=== PATIENT | male | born 1970 | race Caucasian/White ===

== ENCOUNTER 2017-02-20 14:33 | Emergency (ER) | payer MEDICARE, OTHER ==
[~2017-02-20] VITALS: Ht 185.4 cm; Wt 70.4 kg
[~2017-02-20 14:33] MED LIST: CLON1TAB PO; ESOM20EC PO
--- NOTE | 2017-02-20 16:42 | NUR ---
Patient to bed 08.
--- NOTE | 2017-02-20 16:47 | NUR ---
Dr. Perry evaluating patient at bedside.
--- NOTE | 2017-02-20 16:50 | NUR ---
PATIENT PRESENTS TO ED WITH LINEAR ABRASIONS TO RIGHT SIDE OF NECK , TENDER TO RIGHT PARIETAL OCCIPITAL AREA . PT STATES . DENIES N/V/D; SKIN IS PINK/WARM/DRY; AAOX4 WITH EVEN AND STEADY GAIT; LUNGS CLEAR BL; HR EVEN AND REGULAR; PT DENIES ANY FEVER, CP, SOB, OR COUGH AT THIS TIME; PATIENT STATES PAIN OF 8/10 AT THIS TIME; VSS; PATIENT POSITIONED FOR COMFORT; HOB ELEVATED; BEDRAILS UP X2; BED DOWN. ER MD MADE AWARE OF PT STATUS.
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
== END 2017-02-20 17:39 | disposition home or self-care (01) ==
LOC: MED 14:33
DX: S09.8XXA Other specified injuries of head, initial encounter (principal); F41.9 Anxiety disorder, unspecified; Y04.2XXA Assault by strike against or bumped into by another person, initial encounter; Y93.89 Activity, other specified; Y92.89 Other specified places as the place of occurrence of the external cause; Y99.8 Other external cause status
CPT/HCPCS: 99283

== ENCOUNTER 2018-07-23 20:30 | Emergency (ER) | payer OTHER, MEDICAID ==
[~2018-07-23] VITALS: Ht 182.9 cm; Wt 77.1 kg
--- NOTE | 2018-07-23 20:57 | NUR ---
PT AMBULATED TO BED 10. REFUSED VITALS D/T SEVERE ANXIETY.
--- NOTE | 2018-07-23 20:57 | NUR ---
47/M CAME IN W C/O RUQ PAIN RADIATING TO RT SHOULDER AND BACK X 2 DAYS. ABD SOFT, ROUND, -TENDERNESS, BS ACTIVE X 4. DENIES FEVER/CHILLS, N/V/D. DENIES TRAUMA/INJURY. PT APPEARS HIGHLY ANXIOUS, REFUSING TO BE ON MONITOR UNTIL SEEN BY MD. PMH: ANXIETY
--- NOTE | 2018-07-23 21:22 | NUR ---
Note josedayana in EDM - 07/23/18 at 2126 by LADI Patient discharged with v/s stable. Written and verbal after care instructions given and explained. Patient alert, oriented and verbalized understanding of instructions. Ambulatory with steady gait. All questions addressed prior to discharge. ID band removed. Patient advised to follow up with PMD. Rx of PEPCID, BENADRYL, PREDNISONE given. Patient educated on indication of medication including possible reaction and side effects. Opportunity to ask questions provided and answered.
[2018-07-23] MEDS ORDERED: LORazepam 1 MG TAB PO ONE (21:30)
[2018-07-23] MEDS ORDERED: CYCLOBENZAPRINE 10 MG TAB PO ONE (21:30)
--- NOTE | 2018-07-23 22:30 | NUR ---
Patient discharged with v/s stable. Written and verbal after care instructions given and explained. Patient alert, oriented and verbalized understanding of instructions. Ambulatory with steady gait. All questions addressed prior to discharge. ID band removed. Patient advised to follow up with PMD. Rx of FLEXERIL given. Patient educated on indication of medication including possible reaction and side effects. Opportunity to ask questions provided and answered.
[2018-07-23 22:36] VITALS: BP 135/82
== END 2018-07-23 22:30 | disposition home or self-care (01) ==
LOC: MED 20:30
DX: F41.9 Anxiety disorder, unspecified (principal); M25.511 Pain in right shoulder; Z79.899 Other long term (current) drug therapy
CPT/HCPCS: 99283; 99284

== ENCOUNTER 2018-12-18 18:05 | Emergency (ER) | payer MEDICAID, MEDICARE, OTHER ==
[~2018-12-18] VITALS: Ht 177.8 cm; Wt 73.0 kg
[2018-12-18 18:10] VITALS: BP 135/94
--- NOTE | 2018-12-18 18:25 | NUR ---
PATIENT PRESENTS TO ED WITH C/O PERSISTANT ANXIETY X TODAY TOOK KLONOPIN TODAY WHICH HELPED BUT AFTER EATING YOGURT HAD UPSET STOMACH AND FREQUENT BELCHING WHICH MAY HAVE EXACERBATED ANXIETY AGAIN PER PT HYPERSPEECH, FLIGHT OF IDEAS----DENIES N/V/D; SKIN IS PINK/WARM/DRY; AAOX4 WITH EVEN AND STEADY GAIT; LUNGS CLEAR BL; HR EVEN AND REGULAR; PT DENIES ANY FEVER, CP, SOB, OR COUGH AT THIS TIME; PATIENT STATES PAIN OF 0/10 AT THIS TIME; VSS; PATIENT POSITIONED FOR COMFORT; HOB ELEVATED; BEDRAILS UP X2; BED DOWN. ER MD MADE AWARE OF PT STATUS.
--- NOTE | 2018-12-18 18:33 | NUR ---
PT REFUSED BEING PUT ON RIG SUPERINTENDENT.
[2018-12-18] MEDS ORDERED: DICYCLOMINE HCL LIQUID 20 MG, ALUMINUM HYD/MAG/SIMETHICONE 30 ML, LIDOCAINE VISCOUS 2% ... PO ONE ×3 (18:50)
[2018-12-18] MEDS ORDERED: LORazepam 2 MG/ML VIAL IM ONE (18:50)
--- NOTE | 2018-12-18 19:20 | NUR ---
Patient discharged AND REFUSED TO TAKE VS. Written and verbal after care instructions given and explained. Patient alert, oriented and verbalized understanding of instructions. Ambulatory with steady gait. All questions addressed prior to discharge. ID band removed. Patient advised to follow up with PMD. Rx of MYLANTA AND BENTYL given. Patient educated on indication of medication including possible reaction and side effects. Opportunity to ask questions provided and answered.
== END 2018-12-18 19:20 | disposition home or self-care (01) ==
LOC: MED 18:05
DX: F41.9 Anxiety disorder, unspecified (principal); K29.70 Gastritis, unspecified, without bleeding; Z79.899 Other long term (current) drug therapy
CPT/HCPCS: 99283; J2060

== ENCOUNTER 2019-01-18 09:34 | Emergency (ER) | payer MEDICARE, OTHER ==
[~2019-01-18] VITALS: Ht 160 cm; Wt 72.6 kg
[2019-01-18 09:46] VITALS: BP 141/81
--- NOTE | 2019-01-18 09:54 | NUR ---
PT AMB TO BED 9
--- NOTE | 2019-01-18 09:55 | NUR ---
PT AMBULATORY WITH CANE TO RESTROOM FOR URINE SAMPLE
--- NOTE | 2019-01-18 10:03 | NUR ---
48 Y MALE BIB SELF AMBULATORY WITH CANE C/O GENERALIZED ABDOMINAL PAIN RADIATING TO BACK THIS AM. PT STATES THE PAIN WOKE HIM UP THIS MORNING AND THEN HE EXPERIENCED AN ANXIETY ATTACK. PAIN 9/10, SEVERE. STATES HE TOOK AN ANXIETY PILL BEFORE COMING IN TODAY. DENIES N/V. LAST BM YESTERDAY WITHOUT DIFFICULTY, NORMAL. BOWEL SOUNDS ACTIVE IN ALL 4 QUADRANTS. ABDOMEN SOFT AND FLAT. PT TACHY AT 122. PT AA0X4. BED IS DOWN, LOCKED, BED RAIL X 1, ERMD TO SEE PT. MED HX: ANXIETY, DEPRESSION, GASTRITIS, PREVIOUS SURGERIES ON THE WRIST AND BACK RX- CLODIPINE, MYLANTA
--- NOTE | 2019-01-18 10:31 | NUR ---
DR VIGIL AT BEDSIDE FOR PT EVALUATION
[2019-01-18] MEDS ORDERED: NACL 0.9% 1,000 ML IV ONE (10:52)
[2019-01-18] MEDS ORDERED: NACL 0.9% 1,000 ML IV SCH (10:52)
[2019-01-18] MEDS ORDERED: KETOROLAC 30 MG/ML VIAL IVP ONE (10:55)
[2019-01-18] MEDS ORDERED: GLYCOPYRROLATE 0.2 MG/ML VIAL IV ONE (10:55)
[2019-01-18] MEDS ORDERED: LORazepam 2 MG/ML VIAL IVP ONE (10:55)
--- NOTE | 2019-01-18 10:59 | NUR ---
LAB AT BEDSIDE
[2019-01-18 11:13] LABS: BASOPHILS % (AUTO) 0.2 % (0.0-2.0); EOSINOPHILS # (AUTO) 0.1 K/uL (0-0.4); EOSINOPHILS % (AUTO) 1.4 % (0.0-4.0); HEMATOCRIT 47.3 % (36-52); HEMOGLOBIN 16.3 g/dL (12.0-18.0); LYMPHOCYTES # (AUTO) 0.9 K/uL (2.0-11.5); LYMPHOCYTES % (AUTO) 14.9 % (20.5-51.1); MEAN CORPUSCULAR HEMOGLOBIN 33 pg (27-31); MEAN CORPUSCULAR HGB CONC 34 g/dL (33-37); MEAN CORPUSCULAR VOLUME 95.2 fL (80-94); MONOCYTES # (AUTO) 0.4 K/uL (0.8-1.0); MONOCYTES % (AUTO) 6.8 % (1.7-9.3); NEUTROPHILS # (AUTO) 4.7 K/uL (1.8-7.7); NEUTROPHILS % (AUTO) 76.7 % (42.2-75.2); PLATELET COUNT (AUTO) 288 K/uL (140-450); RED BLOOD CELL COUNT(AUTO) 4.97 MIL/uL (4.20-6.10); RED CELL DISTRIBUTION WIDTH 12.8 % (11.6-13.7); WHITE BLOOD COUNT (AUTO) 6.1 K/uL (4.8-10.8)
[2019-01-18 11:17] LABS: BILIRUBIN,URINE NEGATIVE (NEGATIVE); BLOOD, URINE TRACE-I (NEGATIVE); COLOR,URINE YELLOW (YELLOW); LEUKOCYTE ESTERASE ,URINE NEGATIVE (NEGATIVE); NITRITE, URINE NEGATIVE (NEGATIVE); UGLUCOSE NEGATIVE (NEGATIVE)
[2019-01-18 11:18] LABS: APPEARANCE,URINE CLEAR (CLEAR)
[2019-01-18 11:19] LABS: ANION GAP 9.4 (8-16); CARBON DIOXIDE 29.9 mmol/L (21-32); CHLORIDE 102 mmol/L (98-107); CREATININE 1.2 mg/dL (0.7-1.3); GFR ARICAN-AMERICAN 83 mL/min (>90); GLUCOSE 102 mg/dL (74-106); POTASSIUM 4.3 mmol/L (3.5-5.1); SODIUM SERUM 137 mmol/L (136-145); UREA NITROGEN, BLOOD 21 mg/dL (7-18)
[2019-01-18 11:21] LABS: BARBITURATE, URINE NEG. ng/ml (NEG <=200); BENZODIAZEPINE, URINE NEG. ng/mL (NEG <=200); CANNABINOID, URINE NEG. ng/mL (NEG <=50); COCAINE, URINE NEG. ng/mL (NEG <=300); OPIATE, URINE NEG. ng/mL (NEG <=2000); PHENCYCLIDINE SCREEN,URINE NEG. ng/mL (NEG <=25)
[2019-01-18 11:23] LABS: RBC,URINE 0-5 /HPF (0-5); WBC,URINE 0-5 /HPF (0-5)
[2019-01-18 11:25] LABS: ALBUMIN 3.8 g/dL (3.4-5.0); AMYLASE 80 U/L (25-115); ASPARTATE AMINOTRANSFERASE 11 U/L (15-37); LIPASE 145 U/L (73-393); MAGNESIUM 1.9 mg/dL (1.8-2.4); TOTAL BILIRUBIN 0.7 mg/dL (0.0-1.0)
--- NOTE | 2019-01-18 11:33 | NUR ---
PT ALLERGIC TO SHRIMP, DR VIGIL NOTIFIED. DR VIGIL STATES HE WILL PUT AN ORDER FOR CT WITHOUT CONTRAST. CALLED CT AND NOTIFIED.
--- NOTE | 2019-01-18 11:49 | NUR ---
PT PAIN 5/10 AT THIS TIME
--- NOTE | 2019-01-18 11:52 | NUR ---
PT TAKEN TO CT VIA GURNEY WITH FLUIDS RUNING
--- NOTE | 2019-01-18 12:01 | NUR ---
PT RETURNED FROM CT
--- NOTE | 2019-01-18 12:01 | NUR ---
ALERT AND ORIENTED X 4, PT NOW USING URINAL BEDSIDE
--- NOTE | 2019-01-18 13:00 | NUR ---
PT AA0X4. LIGHTS TURNED OFF FOR PT COMFORT. PT LAYING IN BED. PAIN 10/09.
[2019-01-18 13:55] VITALS: BP 127/80
--- NOTE | 2019-01-18 13:55 | NUR ---
Patient discharged with v/s stable. Written and verbal after care instructions given and explained. Patient alert, oriented and verbalized understanding of instructions. Ambulatory with CANE. All questions addressed prior to discharge. ID band removed. Patient advised to follow up with PMD. Rx of VISATRIL given. Patient educated on indication of medication including possible reaction and side effects. Opportunity to ask questions provided and answered. ADVISED TO FOLLOW UP WITH [facility].
== END 2019-01-18 13:55 | disposition home or self-care (01) ==
LOC: MED 09:34
DX: K58.9 Irritable bowel syndrome, unspecified (principal); F43.10 Post-traumatic stress disorder, unspecified; F41.9 Anxiety disorder, unspecified; Z79.899 Other long term (current) drug therapy; Z91.013 Allergy to seafood
CPT/HCPCS: 36415; 74176; 80053; 80305; 81001; 82150; 83605; 83690; 83735; 85025; 96374; 96375; 99284; G0482; J1885; J2060; J3490; J7030

== ENCOUNTER 2019-01-26 16:35 | Emergency (ER) | payer MEDICARE, OTHER ==
[~2019-01-26] VITALS: Ht 182.9 cm; Wt 72.6 kg
--- NOTE | 2019-01-26 16:47 | NUR ---
PATIENT BIB SELF FOR CHEST PAIN, SOB, ANXIETY. PT STATES HE TAKES CLONIPINE FOR ANIXETY AND TOOK 1MG TOTAL TODAY BUT STILL HAS CHEST PAIN AND SOB. PT IS SHAKY AND ANXIOUS, AWAKE AND ALERT. PT RECENTLY DIAGNOSED WITH H. PYLORI AND STOMACH ULCERS. DENIES N/V/D; SKIN IS PINK/WARM/DRY; ELVATED HR NOTED, PT REFUSED PET CARETAKER AT BEDSIDE STATED IT CAUSED MORE ANXIETY TO HIM. PATIENT POSITIONED FOR COMFORT; HOB ELEVATED; BEDRAILS UP X2; BED DOWN. ER MD MADE AWARE OF PT STATUS.
[2019-01-26 16:50] VITALS: BP 124/76
--- NOTE | 2019-01-26 17:30 | NUR ---
Patient being evaluated by physician at bedside.
[2019-01-26 17:31] VITALS: BP 124/76
--- NOTE | 2019-01-26 17:31 | NUR ---
Patient discharged TO HOME, Written and verbal after care instructions given and explained. Patient verbalized understanding. Advised to follow up with PMD.
== END 2019-01-26 17:31 | disposition home or self-care (01) ==
LOC: MED 16:35
DX: K29.70 Gastritis, unspecified, without bleeding (principal); B96.81 Helicobacter pylori [H. pylori] as the cause of diseases classified elsewhere; F41.9 Anxiety disorder, unspecified; Z79.899 Other long term (current) drug therapy; Z91.013 Allergy to seafood; Z98.890 Other specified postprocedural states
CPT/HCPCS: 82948; 93005; 99283

== ENCOUNTER 2019-02-17 14:42 | Emergency (ER) | payer MEDICARE, OTHER ==
[~2019-02-17] VITALS: Ht 182.9 cm; Wt 71.2 kg
[2019-02-17 14:53] VITALS: BP_SYST 135; BP_SYST 151; BP_DIAS 76; BP_DIAS 86
--- NOTE | 2019-02-17 14:55 | NUR ---
Colin alaniz in [facility] - 02/17/19 at 1516 by MMTHEM Patient ambulated to bed 1. RN evaluating patient at bedside.
--- NOTE | 2019-02-17 15:17 | NUR ---
Patient ambulated to bed 11. RN evaluating patient at bedside.
--- NOTE | 2019-02-17 15:33 | NUR ---
c/o abdominal pain x 3 days that radiates to upper L shoulder. pt reports having recent H. Pylori treatment. LBM 02/16/19, regular, abdomen soft, flat, nontender. pt denies n/v/d, fever. pt reports long hx with anxiety, and appears very anxious and shakey at this time. pt refused to have bedside potline monitor on due to anxiety/panic issues. be in low position, side rail up x1.
--- NOTE | 2019-02-17 16:18 | NUR ---
PT RESTING IN BED, NO NEW NEEDS AT THIS TIME
--- NOTE | 2019-02-17 16:47 | NUR ---
Dr. Bajwa evaluating patient at bedside.
[2019-02-17] MEDS ORDERED: DICYCLOMINE HCL LIQUID 20 MG, ALUMINUM HYD/MAG/SIMETHICONE 30 ML, LIDOCAINE VISCOUS 2% ... PO ONE ×3 (17:05)
[2019-02-17 17:24] VITALS: BP 145/84
--- NOTE | 2019-02-17 17:24 | NUR ---
Patient discharged with v/s stable. Written and verbal after care instructions given and explained. Patient verbalized understanding. Ambulatory with steady gait. All questions addressed prior to discharge. Advised to follow up with PMD.
== END 2019-02-17 17:24 | disposition home or self-care (01) ==
LOC: MED 14:42
DX: K21.9 Gastro-esophageal reflux disease without esophagitis (principal); F41.9 Anxiety disorder, unspecified; Z98.890 Other specified postprocedural states; Z91.013 Allergy to seafood; Z79.899 Other long term (current) drug therapy
CPT/HCPCS: 81002; 99282

== ENCOUNTER 2019-03-06 13:15 | Emergency (ER) | payer MEDICARE, OTHER ==
[~2019-03-06] VITALS: Ht 182.9 cm; Wt 71.9 kg
[2019-03-06 13:22] VITALS: BP 152/92
--- NOTE | 2019-03-06 13:28 | NUR ---
Patient ambulated to bed 6. RN evaluating patient at bedside.
--- NOTE | 2019-03-06 13:45 | NUR ---
Pt bib slef to the ed with the chief c/o anxiety started this morning. Pt took clonopin x3: 0.25 mg twice and small piece of 0.05 mg clonopin to relieve anxiety. Last time taken was [id number] pm.Pt has hx of panic disorder and taking meds: clonopin, buspar, lexapro, xantac and prelosec. Pt was seen by psych doctor a month ago. Noted with shaky hands, anxious. Pt reports left chest pain radiating to the neck associated with anxiety. SWtates pain 3/10 at this time. Denies n/v/d. Denies fever. Lungs clear. Refused to be on monitor. A/O x4. Breathing normally at this time.
--- NOTE | 2019-03-06 14:31 | NUR ---
PT BEING EVALUATED BY BUILDING STONECUTTER AT THIS TIME.
[2019-03-06] MEDS ORDERED: LORazepam 1 MG TAB PO ONE (15:20)
--- NOTE | 2019-03-06 15:31 | NUR ---
PT REFUSED ATIVAN, STATING HE WOULD RATHER TAKE HIS KLONOPIN, LAURA PEREZ NOTIFIED.
[2019-03-06] MEDS ORDERED: clonazePAM 0.5 MG TAB PO ONE (15:35)
--- NOTE | 2019-03-06 16:52 | NUR ---
ATIVAN NOT ADMINISTERED. PT TOOK HIS OWN CLONOPIN 1.25 MG. MAGAZINE DESIGNER MADE AWARE. SAID NO NEED TO GIVE OTHER MEDS.
[2019-03-06 16:53] LABS: BASOPHILS % (AUTO) 0.1 % (0.0-2.0); EOSINOPHILS % (AUTO) 0.2 % (0.0-4.0); HEMATOCRIT 50.2 % (36-52); HEMOGLOBIN 17.2 g/dL (12.0-18.0); LYMPHOCYTES # (AUTO) 0.8 K/uL (2.0-11.5); LYMPHOCYTES % (AUTO) 10.1 % (20.5-51.1); MEAN CORPUSCULAR HEMOGLOBIN 33 pg (27-31); MEAN CORPUSCULAR HGB CONC 34 g/dL (33-37); MEAN CORPUSCULAR VOLUME 95.9 fL (80-94); MONOCYTES # (AUTO) 0.3 K/uL (0.8-1.0); NEUTROPHILS # (AUTO) 6.7 K/uL (1.8-7.7); NEUTROPHILS % (AUTO) 85.6 % (42.2-75.2); PLATELET COUNT (AUTO) 276 K/uL (140-450); RED BLOOD CELL COUNT(AUTO) 5.24 MIL/uL (4.20-6.10); RED CELL DISTRIBUTION WIDTH 13.2 % (11.6-13.7); WHITE BLOOD COUNT (AUTO) 7.8 K/uL (4.8-10.8)
[2019-03-06] MEDS ORDERED: DICYCLOMINE HCL LIQUID 20 MG, ALUMINUM HYD/MAG/SIMETHICONE 30 ML, LIDOCAINE VISCOUS 2% ... PO ONE ×3 (17:10)
[2019-03-06 17:16] LABS: CARBON DIOXIDE 27.4 mmol/L (21-32); CREATININE 1.1 mg/dL (0.7-1.3); POTASSIUM 3.4 mmol/L (3.5-5.1)
[2019-03-06 17:27] LABS: ALBUMIN 4.8 g/dL (3.4-5.0); TOTAL BILIRUBIN 0.5 mg/dL (0.0-1.0)
--- NOTE | 2019-03-06 18:04 | NUR ---
PT BEING RE-EVALUATED BY CUSTOMER SUPPORT SPECIALIST.
[2019-03-06 18:21] VITALS: BP 126/82
== END 2019-03-06 18:20 | disposition home or self-care (01) ==
LOC: MED 13:15
DX: F41.9 Anxiety disorder, unspecified (principal); Z91.013 Allergy to seafood; Z79.899 Other long term (current) drug therapy
CPT/HCPCS: 36415; 71045; 80053; 83690; 84484; 85025; 85610; 93005; 99284; Q0092

== ENCOUNTER 2019-04-06 11:31 | Emergency (ER) | payer MEDICARE, OTHER ==
[~2019-04-06] VITALS: Ht 182.9 cm; Wt 70.3 kg
[2019-04-06 11:34] VITALS: BP 139/82
--- NOTE | 2019-04-06 11:40 | NUR ---
Patient ambulated to bed 3. RN evaluating patient at bedside.
--- NOTE | 2019-04-06 11:51 | NUR ---
PT BIB SLEF WITH C/O ABD PAIN X 1 MONTH. STATES TO HAVE CONSTIPATION , LBM TODAY AM, STOOL COMPACTED AND VERY HARD. STATES TO HAVE TAKEN METMUCIL AND GLYCERINE SUPPOSITOIES AT HOME YESTERDAY NIGHT. GENERALISED PAIN AT STOMACH AND RADIATES TO BACK. GETS WORSE WHILE USING RESTROOM AND LYING ON BACK. PER PT, HAD CONSULTED WITH GASTRO-ENETROLOGIST , SUGGESTED FOR COLONSOCOPY. 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 ABDOMEN SOFT TO TOUCH. DENIES ANY N, V OR FEVER AT THIS TIME. PAIN PAIN 8/10 AT THE STOMACH. DIAGNOSED WITH H.PYLORI IN 2014, TOOK ABX X1WEEK, RELIEF TILL MEDS LASTED, GOT WORSE LATER. HX OF ANXIETY WELL. MEDS : PROLISEC, ZANTAC, BUSPAR, CLONIPINE, LEXAPRIL
--- NOTE | 2019-04-06 11:53 | NUR ---
Dr. Butcher evaluating patient at bedside.
[2019-04-06] MEDS ORDERED: KETOROLAC 15 MG/ML VIAL IVP ONE (12:10)
[2019-04-06] MEDS ORDERED: NACL 0.9% 1,000 ML IV ONE (12:10)
[2019-04-06 12:29] LABS: BASOPHILS % (AUTO) 0.3 % (0.0-2.0); EOSINOPHILS % (AUTO) 0.7 % (0.0-4.0); HEMOGLOBIN 16.5 g/dL (12.0-18.0); LYMPHOCYTES # (AUTO) 1.1 K/uL (2.0-11.5); LYMPHOCYTES % (AUTO) 17.7 % (20.5-51.1); MEAN CORPUSCULAR HEMOGLOBIN 33 pg (27-31); MEAN CORPUSCULAR HGB CONC 34 g/dL (33-37); MEAN CORPUSCULAR VOLUME 94.8 fL (80-94); MONOCYTES # (AUTO) 0.3 K/uL (0.8-1.0); MONOCYTES % (AUTO) 5.4 % (1.7-9.3); NEUTROPHILS # (AUTO) 4.8 K/uL (1.8-7.7); NEUTROPHILS % (AUTO) 75.9 % (42.2-75.2); PLATELET COUNT (AUTO) 279 K/uL (140-450); RED BLOOD CELL COUNT(AUTO) 5.07 MIL/uL (4.20-6.10); WHITE BLOOD COUNT (AUTO) 6.4 K/uL (4.8-10.8)
[2019-04-06 12:30] LABS: ANION GAP 9.4 (8-16); CARBON DIOXIDE 32.4 mmol/L (21-32); CREATININE 1.2 mg/dL (0.7-1.3); POTASSIUM 3.8 mmol/L (3.5-5.1)
[2019-04-06 12:35] LABS: ALBUMIN 4.3 g/dL (3.4-5.0); TOTAL BILIRUBIN 0.6 mg/dL (0.0-1.0)
[2019-04-06 13:00] VITALS: BP 134/84
--- NOTE | 2019-04-06 13:04 | NUR ---
Patient discharged with v/s stable. Written and verbal after care instructions given and explained. Patient alert, oriented and verbalized understanding of instructions. Ambulatory with steady gait. All questions addressed prior to discharge. ID band removed. Patient advised to follow up with PMD. Rx of MINERAL OIL, MIRALAX given. Patient educated on indication of medication including possible reaction and side effects. Opportunity to ask questions provided and answered.
== END 2019-04-06 13:04 | disposition home or self-care (01) ==
LOC: MED 11:31
DX: K57.90 Diverticulosis of intestine, part unspecified, without perforation or abscess without bleeding (principal); K59.00 Constipation, unspecified; Z98.890 Other specified postprocedural states; Z79.899 Other long term (current) drug therapy; Z91.013 Allergy to seafood
CPT/HCPCS: 36415; 74018; 74176; 80053; 85025; 96374; 99284; J1885; J7030

== ENCOUNTER 2019-05-21 12:08 | Emergency (ER) | payer MEDICARE, OTHER ==
[~2019-05-21] VITALS: Ht 177.8 cm; Wt 68.0 kg
[2019-05-21 12:21] VITALS: BP 119/84
--- NOTE | 2019-05-21 12:43 | NUR ---
48/M BIB SELF C/O ANXIETY & PAIN BODY PAIN X TODAY. HX--ANXIETY, BPH, (RECENT TREATED FOR LYMES DISEASE). PATIENT STATES PAIN OF 5/10 AT THIS TIME. PATIENT POSITIONED FOR COMFORT; HOB ELEVATED; BEDRAILS UP X1; BED DOWN. ER MD MADE AWARE OF PT STATUS.
[2019-05-21] MEDS ORDERED: KETOROLAC 30 MG/ML VIAL IM ONE (13:05)
--- NOTE | 2019-05-21 13:28 | NUR ---
US AT BEDSIDE
[2019-05-21 14:02] LABS: BASOPHILS % (AUTO) 0.3 % (0.0-2.0); EOSINOPHILS % (AUTO) 0.7 % (0.0-4.0); HEMATOCRIT 47.2 % (36-52); HEMOGLOBIN 15.8 g/dL (12.0-18.0); LYMPHOCYTES # (AUTO) 0.8 K/uL (2.0-11.5); LYMPHOCYTES % (AUTO) 15.2 % (20.5-51.1); MEAN CORPUSCULAR HEMOGLOBIN 33 pg (27-31); MEAN CORPUSCULAR HGB CONC 34 g/dL (33-37); MEAN CORPUSCULAR VOLUME 96.9 fL (80-94); MONOCYTES # (AUTO) 0.3 K/uL (0.8-1.0); MONOCYTES % (AUTO) 5.5 % (1.7-9.3); NEUTROPHILS # (AUTO) 4.2 K/uL (1.8-7.7); NEUTROPHILS % (AUTO) 78.3 % (42.2-75.2); PLATELET COUNT (AUTO) 269 K/uL (140-450); RED BLOOD CELL COUNT(AUTO) 4.87 MIL/uL (4.20-6.10); WHITE BLOOD COUNT (AUTO) 5.3 K/uL (4.8-10.8)
[2019-05-21 14:18] LABS: ANION GAP 12.5 (8-16); CARBON DIOXIDE 26.8 mmol/L (21-32); POTASSIUM 4.3 mmol/L (3.5-5.1)
[2019-05-21 14:24] LABS: ALBUMIN 4.1 g/dL (3.4-5.0); TOTAL BILIRUBIN 0.6 mg/dL (0.0-1.0)
[2019-05-21 16:11] VITALS: BP 115/78
== END 2019-05-21 16:11 | disposition home or self-care (01) ==
LOC: MED 12:08
DX: R10.9 Unspecified abdominal pain (principal); Z98.890 Other specified postprocedural states; Z79.899 Other long term (current) drug therapy; Z91.013 Allergy to seafood
CPT/HCPCS: 36415; 71045; 76770; 80053; 81002; 83690; 85025; 96372; 99284; J1885; Q0092

== ENCOUNTER 2019-06-03 11:02 | Emergency (ER) | payer MEDICARE, OTHER ==
[~2019-06-03] VITALS: Ht 182.9 cm; Wt 68.0 kg
[2019-06-03 11:04] VITALS: BP 123/96
--- NOTE | 2019-06-03 11:15 | NUR ---
PT AMBULATED TO BED 6
--- NOTE | 2019-06-03 11:24 | NUR ---
PT REQUESTING ACCU CHECK. 112 PT NON-DIABETIC
--- NOTE | 2019-06-03 11:25 | NUR ---
C/O RUQ ABD PAIN & PANIC ATTACK X 1 HOUR DIRECTOR PROCESS. BOWEL SOUNDS ACTIVE IN ALL 4 QUADRANTS. ABDOMEN SOFT AND FLAT. PT ANXIOUS AND SHAKY. TACHY AT 119. AA0X4. PT DESCRIBES S/S THEN CONTINUES TO DESCRIBE EVERY ANXIOUS MOMENT HE HAS EXPERIENCED THIS WEEK. BED IS DOWN, LOCKED, BED RAIL X 1, ERMD TO SEE PT. MED HX : ANXIETY,LYME DISEASE, DIVERTICULITIS, RIGHT ELBOW, R SHOULDER, R WRIST SURGERY PT TAKING CLODIPINE FOR ANXIETY
[2019-06-03] MEDS ORDERED: NACL 0.9% 1,000 ML IV ONE (11:40)
[2019-06-03] MEDS ORDERED: KETOROLAC 30 MG/ML VIAL IVP ONE (11:40)
--- NOTE | 2019-06-03 12:28 | NUR ---
TORADOL ADMINISTERED IVP, BOLUS STARTED
[2019-06-03 13:11] VITALS: BP 125/92
== END 2019-06-03 13:12 | disposition home or self-care (01) ==
LOC: MED 11:02
DX: R10.11 Right upper quadrant pain (principal); F41.9 Anxiety disorder, unspecified; R41.9 Unspecified symptoms and signs involving cognitive functions and awareness; R42 Dizziness and giddiness; Z98.890 Other specified postprocedural states; Z79.899 Other long term (current) drug therapy; Z91.013 Allergy to seafood
CPT/HCPCS: 81002; 96361; 96374; 99283; J1885; J7030

== ENCOUNTER 2019-07-27 07:30 | Emergency (ER) | payer MEDICARE, OTHER ==
[~2019-07-27] VITALS: Ht 182.9 cm; Wt 71.4 kg
[2019-07-27 07:36] VITALS: BP 135/89
--- NOTE | 2019-07-27 07:44 | NUR ---
PT AMBULATED TO BATHROOM TO PROVIDE URINE SAMPLE.
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
--- NOTE | 2019-07-27 08:07 | NUR ---
Dr. Chun is evaluating the patient at bedside.
[2019-07-27 08:16] VITALS: BP 135/89
== END 2019-07-27 08:18 | disposition home or self-care (01) ==
LOC: MED 07:30
DX: R10.9 Unspecified abdominal pain (principal); F41.9 Anxiety disorder, unspecified; Z76.5 Malingerer [conscious simulation]; Z79.899 Other long term (current) drug therapy; Z91.013 Allergy to seafood
CPT/HCPCS: 99281

== ENCOUNTER 2020-06-19 09:10 | Emergency (ER) | payer MEDICARE, OTHER ==
[~2020-06-19] VITALS: Ht 182.9 cm; Wt 74.8 kg
[2020-06-19 09:13] VITALS: BP 155/83
[2020-06-19] MEDS ORDERED: NACL 0.9% 1,000 ML IV ONE (09:35)
[2020-06-19 09:47] LABS: BASOPHILS % (AUTO) 0.3 % (0.0-2.0); EOSINOPHILS # (AUTO) 0.1 K/uL (0-0.4); EOSINOPHILS % (AUTO) 1.1 % (0.0-4.0); HEMATOCRIT 47.6 % (36-52); HEMOGLOBIN 16.4 g/dL (12.0-18.0); LYMPHOCYTES # (AUTO) 1.1 K/uL (2.0-11.5); LYMPHOCYTES % (AUTO) 16.7 % (20.5-51.1); MEAN CORPUSCULAR HEMOGLOBIN 33 pg (27-31); MEAN CORPUSCULAR HGB CONC 34 g/dL (33-37); MEAN CORPUSCULAR VOLUME 96.3 fL (80-94); MONOCYTES # (AUTO) 0.4 K/uL (0.8-1.0); MONOCYTES % (AUTO) 5.4 % (1.7-9.3); NEUTROPHILS # (AUTO) 5.2 K/uL (1.8-7.7); NEUTROPHILS % (AUTO) 76.5 % (42.2-75.2); PLATELET COUNT (AUTO) 294 K/uL (140-450); RED BLOOD CELL COUNT(AUTO) 4.94 MIL/uL (4.20-6.10); RED CELL DISTRIBUTION WIDTH 13.1 % (11.6-13.7); WHITE BLOOD COUNT (AUTO) 6.8 K/uL (4.8-10.8)
[2020-06-19 10:01] LABS: ALBUMIN 4.4 g/dL (3.4-5.0); CARBON DIOXIDE 27.1 mmol/L (21-32); CREATININE 1.1 mg/dL (0.6-1.3); POTASSIUM 4.1 mmol/L (3.5-5.1); TOTAL BILIRUBIN 0.5 mg/dL (0.0-1.0)
[2020-06-19 10:34] VITALS: BP 156/89
== END 2020-06-19 10:33 | disposition home or self-care (01) ==
LOC: MED 09:10
DX: K57.92 Diverticulitis of intestine, part unspecified, without perforation or abscess without bleeding (principal); R03.0 Elevated blood-pressure reading, without diagnosis of hypertension; F17.200 Nicotine dependence, unspecified, uncomplicated; Z79.899 Other long term (current) drug therapy; Z87.828 Personal history of other (healed) physical injury and trauma; Z91.013 Allergy to seafood
CPT/HCPCS: 36415; 74176; 80053; 81002; 85025; 96360; 99284; J7030

== ENCOUNTER 2020-08-01 12:34 | Emergency (ER) | payer MEDICARE, OTHER ==
[~2020-08-01] VITALS: Ht 182.9 cm; Wt 72.6 kg
[2020-08-01 12:44] VITALS: BP 123/90
--- NOTE | 2020-08-01 12:44 | NUR ---
PT TAKEN TO BED 11.
--- NOTE | 2020-08-01 13:00 | NUR ---
49/M presents to ED with complaints of LLQ pain x1 day. Pt reports he was seen here approximately 1 month ago and was dx with diverticulosis. Pt seen by PCP and had endoscopy and colonoscopy performed and no new findings. Pt states yesterday he had a sudden onset of LLQ pain radiating to LUQ near left axilla. Pt also reports having a full sensation after eating and constipation. LBM this morning. Pt also appears very anxious and states he has hx of anxiety especially while being in hospital. Denies any N/V/D. Denies fever or chills. VSS.
[2020-08-01] MEDS ORDERED: ONDANSETRON 4 MG/2 ML VIAL IVP ONE (13:15)
[2020-08-01] MEDS ORDERED: MORPHINE SULFATE 4 MG/ML SYR IVP ONE (13:15)
[2020-08-01] MEDS ORDERED: OMEP20EC11 PO (13:42)
[2020-08-01 13:44] LABS: BASOPHILS % (AUTO) 0.4 % (0.0-2.0); EOSINOPHILS # (AUTO) 0.1 K/uL (0-0.4); HEMATOCRIT 45.2 % (36-52); HEMOGLOBIN 15.4 g/dL (12.0-18.0); LYMPHOCYTES # (AUTO) 1.1 K/uL (2.0-11.5); LYMPHOCYTES % (AUTO) 16.6 % (20.5-51.1); MEAN CORPUSCULAR HEMOGLOBIN 33 pg (27-31); MEAN CORPUSCULAR HGB CONC 34 g/dL (33-37); MEAN CORPUSCULAR VOLUME 96.4 fL (80-94); MONOCYTES # (AUTO) 0.4 K/uL (0.8-1.0); MONOCYTES % (AUTO) 6.6 % (1.7-9.3); NEUTROPHILS # (AUTO) 4.8 K/uL (1.8-7.7); NEUTROPHILS % (AUTO) 75.4 % (42.2-75.2); PLATELET COUNT (AUTO) 325 K/uL (140-450); RED BLOOD CELL COUNT(AUTO) 4.69 MIL/uL (4.20-6.10); WHITE BLOOD COUNT (AUTO) 6.4 K/uL (4.8-10.8)
[2020-08-01 13:47] LABS: APPEARANCE,URINE CLEAR (CLEAR); BILIRUBIN,URINE NEGATIVE (NEGATIVE); BLOOD, URINE TRACE-I (NEGATIVE); LEUKOCYTE ESTERASE ,URINE NEGATIVE (NEGATIVE); NITRITE, URINE NEGATIVE (NEGATIVE); UGLUCOSE NEGATIVE (NEGATIVE)
[2020-08-01 13:49] LABS: COLOR,URINE YELLOW (YELLOW)
[2020-08-01 13:55] LABS: RBC,URINE 0-5 /HPF (0-5); WBC,URINE 0-5 /HPF (0-5)
[2020-08-01 14:08] LABS: ALBUMIN 4.4 g/dL (3.4-5.0); ANION GAP 13.6 (8-16); CARBON DIOXIDE 27.3 mmol/L (21-32); CREATININE 1.1 mg/dL (0.6-1.3); POTASSIUM 3.9 mmol/L (3.5-5.1); TOTAL BILIRUBIN 0.9 mg/dL (0.0-1.0)
--- NOTE | 2020-08-01 15:54 | NUR ---
IV removed, catheter intact and site benign. Applied folded 4x4 gauze and tape to stop bleeding.
[2020-08-01 15:55] VITALS: BP 120/85
--- NOTE | 2020-08-01 15:55 | NUR ---
Patient discharged with v/s stable. Written and verbal after care instructions given and explained. Patient alert, oriented and verbalized understanding of instructions. Ambulatory with steady gait. All questions addressed prior to discharge. ID band removed. Patient advised to follow up with PMD. Rx of Miralax and Colace given. Patient educated on indication of medication including possible reaction and side effects. Opportunity to ask questions provided and answered.
== END 2020-08-01 15:55 | disposition home or self-care (01) ==
LOC: MED 12:34
DX: K59.00 Constipation, unspecified (principal); K57.90 Diverticulosis of intestine, part unspecified, without perforation or abscess without bleeding; R03.0 Elevated blood-pressure reading, without diagnosis of hypertension; F41.8 Other specified anxiety disorders; Z91.013 Allergy to seafood; Z79.899 Other long term (current) drug therapy; Z85.030 Personal history of malignant carcinoid tumor of large intestine
CPT/HCPCS: 36415; 80053; 81001; 83605; 83690; 85025; 87040; 99284; J2270; J2405

== ENCOUNTER → 2020-08-13 | Emergency (ER) | payer MEDICARE, OTHER ==
[~2020-08-13] VITALS: Ht 182.9 cm; Wt 72.1 kg
[~2020-08-13] MED LIST changes: -ESOM20EC PO; +NACL 0.9% 1,000 ML IV SCH; +OMEP20EC11 PO
[2020-08-13 13:07] VITALS: BP 132/86
[2020-08-13 17:45] LABS: BASOPHILS % (AUTO) 0.3 % (0.0-2.0); EOSINOPHILS % (AUTO) 0.2 % (0.0-4.0); HEMATOCRIT 45.8 % (36-52); HEMOGLOBIN 15.6 g/dL (12.0-18.0); LYMPHOCYTES # (AUTO) 1.2 K/uL (2.0-11.5); LYMPHOCYTES % (AUTO) 13.1 % (20.5-51.1); MEAN CORPUSCULAR HEMOGLOBIN 33 pg (27-31); MEAN CORPUSCULAR HGB CONC 34 g/dL (33-37); MONOCYTES # (AUTO) 0.3 K/uL (0.8-1.0); MONOCYTES % (AUTO) 3.6 % (1.7-9.3); NEUTROPHILS # (AUTO) 7.9 K/uL (1.8-7.7); NEUTROPHILS % (AUTO) 82.8 % (42.2-75.2); PLATELET COUNT (AUTO) 317 K/uL (140-450); RED BLOOD CELL COUNT(AUTO) 4.72 MIL/uL (4.20-6.10); RED CELL DISTRIBUTION WIDTH 12.8 % (11.6-13.7); WHITE BLOOD COUNT (AUTO) 9.5 K/uL (4.8-10.8)
[2020-08-13 18:06] LABS: ALBUMIN 4.5 g/dL (3.4-5.0); ANION GAP 13.8 (8-16); CARBON DIOXIDE 27.2 mmol/L (21-32); CREATININE 1.1 mg/dL (0.6-1.3); TOTAL BILIRUBIN 0.4 mg/dL (0.0-1.0)
[2020-08-13 21:53] VITALS: BP 132/86
--- NOTE | 2020-08-13 21:53 | NUR ---
Patient discharged with v/s stable. Written and verbal after care instructions given and explained. Patient alert, oriented and verbalized understanding of instructions. [g ED.DCMODE] with [g ED.D/CMODE]. All questions addressed prior to discharge. ID band removed. Patient advised to follow up with PMD. Rx of [] given. Patient educated on indication of medication including possible reaction and side effects. Opportunity to ask questions provided and answered.
== END | disposition home or self-care (01) ==
LOC: MED 12:35
DX: F41.9 Anxiety disorder, unspecified (principal); Z79.899 Other long term (current) drug therapy; Z91.013 Allergy to seafood
CPT/HCPCS: 36415; 71045; 80053; 84484; 85025; 93005; 99285

== ENCOUNTER 2020-08-18 14:24 | Emergency (ER) | payer MEDICARE, OTHER ==
[~2020-08-18] VITALS: Ht 182.9 cm; Wt 86.2 kg
[~2020-08-18 14:24] MED LIST changes: -NACL 0.9% 1,000 ML IV SCH
[2020-08-18 14:40] VITALS: BP 134/87
--- NOTE | 2020-08-18 15:00 | NUR ---
PT C/O LEFT BACK PAIN RADIATING TO ABD SINCE 3 AM THIS MORNING. DENIES ANY N/V/D. PATIENT HAS HIGH LEVELS OF ANXIETY. DENIES ANY COVID LIKE SYMPTOMS. PMH: ANXIETY NKDA
[2020-08-18] MEDS ORDERED: KETOROLAC 60 MG/2 ML VIAL IM ONE (15:20)
--- NOTE | 2020-08-18 15:58 | NUR ---
COVID SWAB COLLECTED AND SENT TO THE LAB.
--- NOTE | 2020-08-18 16:40 | NUR ---
Patient discharged with v/s stable. Written and verbal after care instructions given and explained. Patient alert, oriented and verbalized understanding of instructions. Ambulatory with steady gait. All questions addressed prior to discharge. ID band removed. Patient advised to follow up with PMD. Rx of DARIOROSACACIA URBINALANTA given. Patient educated on indication of medication including possible reaction and side effects. Opportunity to ask questions provided and answered.
[2020-08-18 16:48] VITALS: BP 134/87
== END 2020-08-18 16:40 | disposition home or self-care (01) ==
LOC: MED 14:24
DX: M54.6 Pain in thoracic spine (principal); Z20.828 Contact with and (suspected) exposure to other viral communicable diseases; Z79.899 Other long term (current) drug therapy; Z91.013 Allergy to seafood; Z91.048 Other nonmedicinal substance allergy status
CPT/HCPCS: 81002; 96372; 99283; J1885; U0003

== ENCOUNTER 2020-09-29 14:12 | Emergency (ER) | payer MEDICARE, OTHER ==
[~2020-09-29] VITALS: Ht 182.9 cm; Wt 65.8 kg
[2020-09-29 14:16] VITALS: BP 148/83
--- NOTE | 2020-09-29 14:16 | NUR ---
Patient ambulated to bed 5. RN is evaluating the patient at bedside.
--- NOTE | 2020-09-29 14:54 | NUR ---
49 Y/O M C/O ABD PAIN THAT RADIATES TO CHEST, SIDES AND BACK. PAIN COMES FROM L UPPER ABD, RATES PAIN 7/10, QUALITY IS SHARP. TOOK TYLENOL 625MG AT 0300 FOR PAIN, NO RELIEF. LAST BM WAS YESTERDAY, TOOK GLYCERIN SUPPOS. STOOL BASELINE IS CONSTIPATED. URINE IS FREQUENT, EXPERIENCES NOCTURIA. NO N&V PRESENT. WAS COVID POSITIVE 08/26, TESTED 09/07 NEGATIVE. REFUSED BEATER HEAD. URINE WAS OBTAINED AND SENT TO LAB. DENIES ANY OTHER SYMPTOMS OF COVID AND HAS NO CONTACT WITH OTHERS WHO ARE COVID POSITIVE. HAS MEDICAL HX OF HERNIA, GASTRITIS, AND HAS HAD A NECK, WRIST AND BACK INJURY. WRIST AND SHOULDER SX. TAKES MUTLIPLE RX AT HOME.
--- NOTE | 2020-09-29 15:02 | NUR ---
URINE WAS COLLECTED, UA WAS PERFORMED.
--- NOTE | 2020-09-29 15:02 | NUR ---
EKG PERFORMED AT BEDSIDE. EKG READS SINUS TACHYCARDIA @ 137
[2020-09-29 15:37] LABS: BASOPHILS % (AUTO) 0.3 % (0.0-2.0); EOSINOPHILS # (AUTO) 0.1 K/uL (0-0.4); EOSINOPHILS % (AUTO) 0.9 % (0.0-4.0); HEMATOCRIT 43.7 % (36-52); HEMOGLOBIN 14.8 g/dL (12.0-18.0); LYMPHOCYTES # (AUTO) 0.9 K/uL (2.0-11.5); LYMPHOCYTES % (AUTO) 14.7 % (20.5-51.1); MEAN CORPUSCULAR HEMOGLOBIN 33 pg (27-31); MEAN CORPUSCULAR HGB CONC 34 g/dL (33-37); MEAN CORPUSCULAR VOLUME 97.3 fL (80-94); MONOCYTES # (AUTO) 0.4 K/uL (0.8-1.0); MONOCYTES % (AUTO) 7.5 % (1.7-9.3); NEUTROPHILS # (AUTO) 4.5 K/uL (1.8-7.7); NEUTROPHILS % (AUTO) 76.6 % (42.2-75.2); PLATELET COUNT (AUTO) 270 K/uL (140-450); RED BLOOD CELL COUNT(AUTO) 4.49 MIL/uL (4.20-6.10); RED CELL DISTRIBUTION WIDTH 13.7 % (11.6-13.7); WHITE BLOOD COUNT (AUTO) 5.9 K/uL (4.8-10.8)
[2020-09-29 15:56] LABS: ALBUMIN 4.6 g/dL (3.4-5.0); ANION GAP 12.4 (8-16); CARBON DIOXIDE 28.5 mmol/L (21-32); CREATININE 1.2 mg/dL (0.6-1.3); POTASSIUM 3.9 mmol/L (3.5-5.1); TOTAL BILIRUBIN 0.7 mg/dL (0.0-1.0)
[2020-09-29 16:39] VITALS: BP 148/83
== END 2020-09-29 16:40 | disposition home or self-care (01) ==
LOC: MED 14:12
DX: K21.9 Gastro-esophageal reflux disease without esophagitis (principal); F41.9 Anxiety disorder, unspecified; Z91.013 Allergy to seafood; Z79.899 Other long term (current) drug therapy
CPT/HCPCS: 36415; 71045; 80053; 81002; 83690; 84484; 85025; 93005; 99285

== ENCOUNTER 2020-10-15 08:32 | Emergency (ER) | payer MEDICARE, OTHER ==
[~2020-10-15] VITALS: Ht 182.9 cm; Wt 68.0 kg
[2020-10-15 08:43] VITALS: BP 141/92
--- NOTE | 2020-10-15 08:49 | NUR ---
PATIEN AMBULATED TO BED 6.
--- NOTE | 2020-10-15 09:26 | NUR ---
49 YEAR OLD MALE COMPLAINS OF ABDOMINAL PAIN X 1 WEEK. INTERMITTENT LOWER ABDOMINAL PAIN 8/10, MOSTLY OCCURRING AT NIGHT, SHARP, PREVENTS HIM FROM SLEEPING. PATIENT DENIES NAUSEA/VOMITING/DIARRHEA, VERBALIZED CONSTIPATION. PATIENT STATED INABILITY TO PERFORM BM WITHOUT MEDICATION ASSISTANCE SINCE COVID DIAGNOSIS IN AUGUST 2020. HAS PURCHASED AND CONSUMED PRILOSEC AND MIRALAX IN ATTEMPT TO RELIEVE CONTIPATION. ABDOMEN FLAT, SOFT, SOMEWHAT TENDER. NORMOACTIVE BOWEL SOUNDS THROUGHOUT. AO4, BREATHING EVEN AND UNLABORED, SKIN WARM AND DRY. BED IN LOWEST POSITION, X1 SIDERAIL UP. PMH - GASTRITIS, PTSD, DEPRESSION, HERNIA NKA
--- NOTE | 2020-10-15 09:34 | NUR ---
PT PICKED UP BY RADIOLOGY VIA WHEELCHAIR
[2020-10-15 10:20] LABS: ANION GAP 15.9 (8-16); CARBON DIOXIDE 29.1 mmol/L (21-32)
--- NOTE | 2020-10-15 11:12 | NUR ---
PT SITTING IN BED, CALM, EYES OPEN, BREATHING EVEN AND UNLABORED. WILL CONTINUE TO MONITOR
[2020-10-15 11:38] LABS: BARBITURATE, URINE NEGATIVE ng/ml (NEG <=200); BENZODIAZEPINE, URINE NEGATIVE ng/mL (NEG <=200); CANNABINOID, URINE NEGATIVE ng/mL (NEG <=50); COCAINE, URINE NEGATIVE ng/mL (NEG <=300); OPIATE, URINE NEGATIVE ng/mL (NEG <=2000); PHENCYCLIDINE SCREEN,URINE NEGATIVE ng/mL (NEG <=25)
--- NOTE | 2020-10-15 12:38 | NUR ---
Patient discharged with v/s stable. Written and verbal after care instructions about anxiety and constipation, abdominal pain given and explained. Patient verbalized understanding. Ambulatory with steady gait. All questions addressed prior to discharge. Advised to follow up with PMD.
[2020-10-15 12:39] VITALS: BP 123/91
== END 2020-10-15 12:38 | disposition home or self-care (01) ==
LOC: MED 08:32
DX: R10.9 Unspecified abdominal pain (principal); F41.9 Anxiety disorder, unspecified; Z98.890 Other specified postprocedural states; Z91.013 Allergy to seafood; Z79.899 Other long term (current) drug therapy
CPT/HCPCS: 36415; 74018; 80048; 80305; 83036; 99284

== ENCOUNTER 2020-11-19 12:21 | Emergency (ER) | payer MEDICARE, OTHER ==
[~2020-11-19] VITALS: Ht 182.9 cm; Wt 65.8 kg
[2020-11-19 12:31] VITALS: BP 141/92
[2020-11-19] MEDS ORDERED: NAPR-54 PO (12:48)
[2020-11-19 13:19] VITALS: BP 141/92
== END 2020-11-19 13:19 | disposition home or self-care (01) ==
LOC: MED 12:21
DX: S39.012A Strain of muscle, fascia and tendon of lower back, initial encounter (principal); K21.9 Gastro-esophageal reflux disease without esophagitis; F41.9 Anxiety disorder, unspecified; Z91.013 Allergy to seafood; X58.XXXA Exposure to other specified factors, initial encounter; Y93.89 Activity, other specified; Y92.89 Other specified places as the place of occurrence of the external cause; Y99.8 Other external cause status
CPT/HCPCS: 99282

== ENCOUNTER 2020-12-30 11:57 | Emergency (ER) | payer MEDICARE, OTHER ==
[~2020-12-30] VITALS: Ht 182.9 cm; Wt 66.7 kg
[~2020-12-30 11:57] MED LIST changes: +NAPR-54 PO
[2020-12-30 12:03] VITALS: BP 136/93
[2020-12-30] MEDS ORDERED: KETOROLAC 30 MG/ML VIAL IM ONE (12:50)
[2020-12-30 13:04] LABS: BASOPHILS % (AUTO) 0.3 % (0.0-2.0); EOSINOPHILS % (AUTO) 0.9 % (0.0-4.0); HEMATOCRIT 43.6 % (36-52); HEMOGLOBIN 14.8 g/dL (12.0-18.0); LYMPHOCYTES # (AUTO) 0.9 K/uL (2.0-11.5); LYMPHOCYTES % (AUTO) 18.9 % (20.5-51.1); MEAN CORPUSCULAR HEMOGLOBIN 34 pg (27-31); MEAN CORPUSCULAR HGB CONC 34 g/dL (33-37); MEAN CORPUSCULAR VOLUME 98.5 fL (80-94); MONOCYTES # (AUTO) 0.3 K/uL (0.8-1.0); MONOCYTES % (AUTO) 5.9 % (1.7-9.3); NEUTROPHILS # (AUTO) 3.6 K/uL (1.8-7.7); PLATELET COUNT (AUTO) 247 K/uL (140-450); RED BLOOD CELL COUNT(AUTO) 4.43 MIL/uL (4.20-6.10); RED CELL DISTRIBUTION WIDTH 12.6 % (11.6-13.7); WHITE BLOOD COUNT (AUTO) 4.8 K/uL (4.8-10.8)
[2020-12-30 13:17] LABS: ANION GAP 12.7 (8-16); CARBON DIOXIDE 27.3 mmol/L (21-32); TOTAL BILIRUBIN 0.6 mg/dL (0.0-1.0)
--- NOTE | 2020-12-30 13:30 | NUR ---
50 YEAR OLD MALE COMPLAINS OF ABDOMINAL PAIN X TODAY. PT DENIES NAUSEA, VOMITTING, OR DIARRHEA. PT STATES HE WAS PANICKING EARLIER DUE TO MACHINE NOISES IN HOSPITAL FROM HIS PTSD BUT IS FEELING FINE NOW. PT AOX4, BREATHING EVEN AND UNLABORED, SKIN WARM AND DRY. BED IN LOWEST POSITION, LOCKED, BED RAIL UPX1. PMH - GASTRITIS, HIATAL HERNIA, BARETTES ESOPHAGUS, PANIC ATTACKS ALLERGIES - NKA
[2020-12-30] MEDS ORDERED: BEN10 PO (14:07)
[2020-12-30 14:32] VITALS: BP 136/93
--- NOTE | 2020-12-30 14:33 | NUR ---
Patient discharged with v/s stable. Written and verbal after care instructions given and explained. Patient alert, oriented and verbalized understanding of instructions. Ambulatory with steady gait. All questions addressed prior to discharge. ID band removed. Patient advised to follow up with PMD. Rx of bentyl 10mg po tid prn abdominal pain given. Patient educated on indication of medication including possible reaction and side effects. Opportunity to ask questions provided and answered.
== END 2020-12-30 14:33 | disposition home or self-care (01) ==
LOC: MED 11:57
DX: R10.84 Generalized abdominal pain (principal); K21.9 Gastro-esophageal reflux disease without esophagitis; Z91.013 Allergy to seafood
CPT/HCPCS: 36415; 76705; 80053; 81002; 83690; 85025; 93005; 96372; 99285; J1885

== ENCOUNTER 2021-01-12 16:03 | Emergency (ER) | payer MEDICARE, OTHER ==
[~2021-01-12] VITALS: Ht 182.9 cm; Wt 67.1 kg
[~2021-01-12 16:03] MED LIST changes: +BEN10 PO
[2021-01-12 16:20] VITALS: BP 117/88
[2021-01-12] MEDS ORDERED: FLONAS NS (16:57)
[2021-01-12] MEDS ORDERED: SUD30 PO (16:57)
[2021-01-12] MEDS ORDERED: ALBU0.0912 IH (16:57)
[2021-01-12 18:32] VITALS: BP 134/81
== END 2021-01-12 18:32 | disposition home or self-care (01) ==
LOC: MED 16:03
DX: R07.9 Chest pain, unspecified (principal); R06.02 Shortness of breath; R05 Cough; K21.9 Gastro-esophageal reflux disease without esophagitis; Z91.013 Allergy to seafood; Z88.8 Allergy status to other drugs, medicaments and biological substances; Z79.899 Other long term (current) drug therapy
CPT/HCPCS: 71045; 99283

== ENCOUNTER 2021-02-01 21:27 | Emergency (ER) | payer MEDICARE, OTHER ==
[~2021-02-01] VITALS: Ht 182.9 cm; Wt 65.8 kg
[~2021-02-01 21:27] MED LIST changes: +ALBU0.0912 IH; +FLONAS NS; +SUD30 PO
[2021-02-01 21:32] VITALS: BP 135/87
[2021-02-01 22:38] VITALS: BP 135/87
== END 2021-02-01 22:38 | disposition home or self-care (01) ==
LOC: MED 21:27
DX: R00.2 Palpitations (principal); R07.9 Chest pain, unspecified; F41.1 Generalized anxiety disorder
CPT/HCPCS: 71045; 93005; 99283

== ENCOUNTER 2021-02-03 15:04 | Emergency (ER) | payer MEDICARE, OTHER ==
[~2021-02-03] VITALS: Ht 182.9 cm; Wt 66.7 kg
[2021-02-03 15:05] VITALS: BP 121/86
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
[2021-02-03] MEDS ORDERED: NAPR-54 PO (16:09)
[2021-02-03 17:15] VITALS: BP 121/86
== END 2021-02-03 17:16 | disposition home or self-care (01) ==
LOC: MED 15:04
DX: M54.2 Cervicalgia (principal); M25.511 Pain in right shoulder; W19.XXXA Unspecified fall, initial encounter; Y93.89 Activity, other specified; Y92.89 Other specified places as the place of occurrence of the external cause; Y99.8 Other external cause status
CPT/HCPCS: 71046; 99283

== ENCOUNTER 2021-04-19 15:02 | Emergency (ER) | payer MEDICARE, OTHER ==
[~2021-04-19] VITALS: Ht 182.9 cm; Wt 70.3 kg
[2021-04-19 15:17] VITALS: BP 130/81
--- NOTE | 2021-04-19 15:18 | NUR ---
C/O PANIC ATTACK & RUQ & RLQ ABD PAIN X 5 HOURS AGO. LAST BM NORMAL TODAY. COVID TESTED NEGATIVE 2 WEEKS AGO. PMH: GERD, ANXIETY.
[2021-04-19 16:19] LABS: BASOPHILS % (AUTO) 0.6 % (0.0-2.0); EOSINOPHILS # (AUTO) 0.1 K/uL (0-0.4); EOSINOPHILS % (AUTO) 1.3 % (0.0-4.0); HEMATOCRIT 45.6 % (36-52); HEMOGLOBIN 15.8 g/dL (12.0-18.0); LYMPHOCYTES # (AUTO) 1.1 K/uL (2.0-11.5); LYMPHOCYTES % (AUTO) 14.5 % (20.5-51.1); MEAN CORPUSCULAR HEMOGLOBIN 33 pg (27-31); MEAN CORPUSCULAR HGB CONC 35 g/dL (33-37); MEAN CORPUSCULAR VOLUME 96.2 fL (80-94); MONOCYTES # (AUTO) 0.5 K/uL (0.8-1.0); MONOCYTES % (AUTO) 6.1 % (1.7-9.3); NEUTROPHILS # (AUTO) 5.9 K/uL (1.8-7.7); NEUTROPHILS % (AUTO) 77.5 % (42.2-75.2); PLATELET COUNT (AUTO) 299 K/uL (140-450); RED BLOOD CELL COUNT(AUTO) 4.73 MIL/uL (4.20-6.10); RED CELL DISTRIBUTION WIDTH 12.9 % (11.6-13.7); WHITE BLOOD COUNT (AUTO) 7.6 K/uL (4.8-10.8)
[2021-04-19 16:35] LABS: APPEARANCE,URINE CLEAR (CLEAR); BILIRUBIN,URINE NEGATIVE (NEGATIVE); BLOOD, URINE TRACE-I (NEGATIVE); COLOR,URINE YELLOW (YELLOW); LEUKOCYTE ESTERASE ,URINE NEGATIVE (NEGATIVE); NITRITE, URINE NEGATIVE (NEGATIVE); PH,URINE 5.5 (5.0-9.0); UGLUCOSE NEGATIVE (NEGATIVE)
[2021-04-19 16:37] LABS: ALBUMIN 4.4 g/dL (3.4-5.0); ANION GAP 8.5 (8-16); CARBON DIOXIDE 31.6 mmol/L (21-32); CREATININE 1.1 mg/dL (0.6-1.3); MAGNESIUM 2.1 mg/dL (1.8-2.4); PHOSPHORUS 3.5 mg/dL (2.5-4.9); POTASSIUM 4.1 mmol/L (3.5-5.1); TOTAL BILIRUBIN 0.5 mg/dL (0.0-1.0)
--- NOTE | 2021-04-19 17:53 | NUR ---
COVID ZELALEM SWAB DONE.
[2021-04-19 18:36] VITALS: BP 123/76
--- NOTE | 2021-04-19 18:36 | NUR ---
Patient discharged with v/s stable. Written and verbal after care instructions given and explained. Patient verbalized understanding. Ambulatory with CANE. All questions addressed prior to discharge. Advised to follow up with PMD.
== END 2021-04-19 18:36 | disposition home or self-care (01) ==
LOC: MED 15:02
DX: R10.11 Right upper quadrant pain (principal); R07.89 Other chest pain; K59.00 Constipation, unspecified; F41.9 Anxiety disorder, unspecified; R00.0 Tachycardia, unspecified; Z20.822 Contact with and (suspected) exposure to COVID-19; K21.9 Gastro-esophageal reflux disease without esophagitis; Z98.890 Other specified postprocedural states; Z79.1 Long term (current) use of non-steroidal anti-inflammatories (NSAID); Z79.899 Other long term (current) drug therapy; Z79.51 Long term (current) use of inhaled steroids; Z88.4 Allergy status to anesthetic agent; Z91.013 Allergy to seafood; Z91.048 Other nonmedicinal substance allergy status; Z91.018 Allergy to other foods
CPT/HCPCS: 36415; 71045; 76705; 80053; 81003; 83690; 83735; 84100; 84484; 85025; 93005; 99285; U0003

== ENCOUNTER 2021-04-21 14:07 | Emergency (ER) | payer MEDICARE, OTHER ==
[~2021-04-21] VITALS: Ht 182.9 cm; Wt 69.4 kg
[2021-04-21 14:20] VITALS: BP 127/87
[2021-04-21] MEDS ORDERED: KETOROLAC 30 MG/ML VIAL IM ONE (14:25)
[2021-04-21] MEDS ORDERED: TRAM50TA1 PO ×2 (15:49→15:50)
[2021-04-21 16:35] VITALS: BP 127/87
== END 2021-04-21 16:37 | disposition home or self-care (01) ==
LOC: MED 14:07
DX: R07.81 Pleurodynia (principal); K21.9 Gastro-esophageal reflux disease without esophagitis; Z88.8 Allergy status to other drugs, medicaments and biological substances; Z79.899 Other long term (current) drug therapy; Z91.013 Allergy to seafood; Z98.890 Other specified postprocedural states; W01.0XXA Fall on same level from slipping, tripping and stumbling without subsequent striking against object, initial encounter; Y93.89 Activity, other specified; Y92.89 Other specified places as the place of occurrence of the external cause; Y99.8 Other external cause status
CPT/HCPCS: 71250; 96372; 99284; J1885

== ENCOUNTER 2021-06-17 17:09 | Emergency (ER) | payer MEDICARE, OTHER ==
[~2021-06-17] VITALS: Ht 182.9 cm; Wt 73.5 kg
[~2021-06-17 17:09] MED LIST changes: +TRAM50TA1 PO
[2021-06-17 17:12] VITALS: BP 110/80
--- NOTE | 2021-06-17 19:23 | NUR ---
PT AMBULATED TO BED 04.
--- NOTE | 2021-06-17 19:50 | NUR ---
50 y/o M BIB self from home c/o abdominal pain x 1 week. Patient A&Ox4, ambulatory, reports LLQ and LUQ abdominal pain. Patient states it is more spasms and discomfort than pain, rates it 4/10, spasm/bloating/intermittent, non-radiating pain. Patient states Tylenol earlier today without relief to symptoms. Patient denies nausea, vomiting, diarrhea, fever, chills, SOB, headache, dysuria, urinary symptoms. Patient states intermittent spasms higher in intensity throughout the day. Patient states constipation, however, reports uses enema to help with his constipation. Last BM: today, brown/semi-formed. Skin pink/warm/dry. Bed locked in lowest position, side rails x 1, call light in reach. PMH: GERD, anxiety, depression Meds: lexapro, klonipin, prilosec, naproxen, Tylenol A: shrimp, lidocaine
--- NOTE | 2021-06-17 20:25 | NUR ---
Dr. Montes is evaluating patient at bedside
--- NOTE | 2021-06-17 20:45 | NUR ---
Lab at bedside
[2021-06-17 20:47] LABS: BASOPHILS % (AUTO) 0.7 % (0.0-2.0); EOSINOPHILS # (AUTO) 0.2 K/uL (0-0.4); EOSINOPHILS % (AUTO) 2.3 % (0.0-4.0); HEMATOCRIT 44.6 % (36-52); HEMOGLOBIN 15.1 g/dL (12.0-18.0); LYMPHOCYTES # (AUTO) 1.5 K/uL (2.0-11.5); LYMPHOCYTES % (AUTO) 19.9 % (20.5-51.1); MEAN CORPUSCULAR HEMOGLOBIN 33 pg (27-31); MEAN CORPUSCULAR HGB CONC 34 g/dL (33-37); MEAN CORPUSCULAR VOLUME 97.8 fL (80-94); MONOCYTES # (AUTO) 0.5 K/uL (0.8-1.0); MONOCYTES % (AUTO) 7.2 % (1.7-9.3); NEUTROPHILS # (AUTO) 5.1 K/uL (1.8-7.7); NEUTROPHILS % (AUTO) 69.9 % (42.2-75.2); PLATELET COUNT (AUTO) 294 K/uL (140-450); RED BLOOD CELL COUNT(AUTO) 4.56 MIL/uL (4.20-6.10); RED CELL DISTRIBUTION WIDTH 12.9 % (11.6-13.7); WHITE BLOOD COUNT (AUTO) 7.3 K/uL (4.8-10.8)
[2021-06-17 21:04] LABS: ALBUMIN 4.1 g/dL (3.4-5.0); ANION GAP 10.9 (8-16); CREATININE 1.1 mg/dL (0.6-1.3); POTASSIUM 3.9 mmol/L (3.5-5.1); TOTAL BILIRUBIN 0.2 mg/dL (0.0-1.0)
--- NOTE | 2021-06-17 21:10 | NUR ---
Signature obtained for CT consent form for Abd/Pelvis.
--- NOTE | 2021-06-17 21:20 | NUR ---
Pt transported to CT by
--- NOTE | 2021-06-17 21:40 | NUR ---
Pt returned from CT by WC.
[2021-06-17 22:44] VITALS: BP 128/78
== END 2021-06-17 22:44 | disposition home or self-care (01) ==
LOC: MED 17:09
DX: K57.90 Diverticulosis of intestine, part unspecified, without perforation or abscess without bleeding (principal); K21.9 Gastro-esophageal reflux disease without esophagitis; F41.9 Anxiety disorder, unspecified; Z88.5 Allergy status to narcotic agent; Z91.013 Allergy to seafood
CPT/HCPCS: 36415; 80053; 81002; 85025; 99284

== ENCOUNTER 2021-07-31 10:29 | Emergency (ER) | payer MEDICARE, OTHER ==
[~2021-07-31] VITALS: Ht 182.9 cm; Wt 73.5 kg
[2021-07-31 10:31] VITALS: BP 137/86
--- NOTE | 2021-07-31 10:39 | NUR ---
Patient being evaluated by DR HDZ at TRIAGE ROOM.
[2021-07-31] MEDS ORDERED: KETOROLAC 30 MG/ML VIAL IM ONE (10:45)
[2021-07-31] MEDS ORDERED: ACETAMINOPHEN 325 MG TAB PO ONE (10:45)
--- NOTE | 2021-07-31 10:46 | NUR ---
9/10 LEFT UPPER PAIN , LEFT ELBOW PAIN X 2 DAYS ^ C/PO PHLEGM, CONGESTION X 2 WEEKS . DENIES TRAUMA/INJURY.
[2021-07-31] MEDS ORDERED: DICL20GE TP (12:24)
[2021-07-31] MEDS ORDERED: ALUMINUM HYD/MAG/SIMETHICONE 30 ML UDC PO ONE (12:25)
[2021-07-31 12:38] VITALS: BP 128/81
--- NOTE | 2021-07-31 12:38 | NUR ---
Patient discharged with v/s stable. Written and verbal after care instructions given TRIGGER POINT INJECTION AND ACUTE BACK PAIN and explained. Patient alert, oriented and verbalized understanding of instructions. Ambulatory with steady gait. All questions addressed prior to discharge. ID band removed. Patient advised to follow up with PMD. Rx of VOLTAREN given. Patient educated on indication of medication including possible reaction and side effects. Opportunity to ask questions provided and answered.
== END 2021-07-31 12:38 | disposition home or self-care (01) ==
LOC: MED 10:29
DX: M54.6 Pain in thoracic spine (principal); M25.522 Pain in left elbow; K21.9 Gastro-esophageal reflux disease without esophagitis; Z79.899 Other long term (current) drug therapy; Z91.013 Allergy to seafood; Z88.8 Allergy status to other drugs, medicaments and biological substances
CPT/HCPCS: 71045; 73080; 96372; 99284; J1885

== ENCOUNTER 2021-10-29 20:39 | Emergency (ER) | payer MEDICARE, OTHER ==
[~2021-10-29] VITALS: Ht 182.9 cm; Wt 76.2 kg
[~2021-10-29 20:39] MED LIST changes: +DICL20GE TP
[2021-10-29 20:54] VITALS: BP 155/95
[2021-10-29 21:57] LABS: BASOPHILS % (AUTO) 0.3 % (0.0-2.0); EOSINOPHILS # (AUTO) 0.1 K/uL (0-0.4); EOSINOPHILS % (AUTO) 1.2 % (0.0-4.0); HEMATOCRIT 44.3 % (36-52); HEMOGLOBIN 15.5 g/dL (12.0-18.0); LYMPHOCYTES # (AUTO) 1.5 K/uL (2.0-11.5); LYMPHOCYTES % (AUTO) 14.1 % (20.5-51.1); MEAN CORPUSCULAR HEMOGLOBIN 33 pg (27-31); MEAN CORPUSCULAR HGB CONC 35 g/dL (33-37); MEAN CORPUSCULAR VOLUME 95.1 fL (80-94); MONOCYTES # (AUTO) 0.8 K/uL (0.8-1.0); MONOCYTES % (AUTO) 7.4 % (1.7-9.3); PLATELET COUNT (AUTO) 339 K/uL (140-450); RED BLOOD CELL COUNT(AUTO) 4.66 MIL/uL (4.20-6.10); RED CELL DISTRIBUTION WIDTH 12.7 % (11.6-13.7); WHITE BLOOD COUNT (AUTO) 10.3 K/uL (4.8-10.8)
[2021-10-29 22:17] LABS: ALBUMIN 4.4 g/dL (3.4-5.0); CARBON DIOXIDE 30.1 mmol/L (21-32); POTASSIUM 4.1 mmol/L (3.5-5.1); TOTAL BILIRUBIN 0.5 mg/dL (0.0-1.0)
--- NOTE | 2021-10-29 23:20 | NUR ---
Dr. Franco at [facility] to exam patient.
--- NOTE | 2021-10-30 01:08 | NUR ---
Patient reported, had epigastric pain, Hx GERD, Dr. Franco notified.
[2021-10-30] MEDS ORDERED: ALUMINUM HYD/MAG/SIMETHICONE 30 ML, DICYCLOMINE HCL LIQUID 20 MG, LIDOCAINE VISCOUS 2% ... PO ONE ×3 (01:10)
[2021-10-30] MEDS ORDERED: DICYCLOMINE HCL LIQUID 10 MG/5 ML UDC ONE (01:12)
[2021-10-30] MEDS ORDERED: ALUMINUM HYD/MAG/SIMETHICONE 30 ML UDC ONE (01:12)
[2021-10-30 01:27] VITALS: BP 145/82
== END 2021-10-30 01:27 | disposition home or self-care (01) ==
LOC: MED 20:39
DX: R07.9 Chest pain, unspecified (principal); R00.2 Palpitations; R61 Generalized hyperhidrosis; K21.9 Gastro-esophageal reflux disease without esophagitis; Z88.8 Allergy status to other drugs, medicaments and biological substances; Z91.013 Allergy to seafood
CPT/HCPCS: 36415; 71045; 80053; 83880; 84484; 85025; 93005; 99285

== ENCOUNTER 2022-01-12 10:33 | Observation (INO) | payer MEDICARE, OTHER ==
[~2022-01-12] VITALS: Ht 182.9 cm; Wt 76.2 kg
[2022-01-12 10:34] VITALS: BP 131/92
[2022-01-12] MEDS ORDERED: LORazepam 2 MG/ML VIAL IVP ONE ×2 (11:05→13:45)
[2022-01-12] MEDS ORDERED: KETOROLAC 30 MG/ML VIAL IVP ONE (11:05)
[2022-01-12 11:39] LABS: BASOPHILS % (AUTO) 0.3 % (0.0-2.0); EOSINOPHILS % (AUTO) 0.5 % (0.0-4.0); HEMATOCRIT 45.1 % (36-52); HEMOGLOBIN 15.4 g/dL (12.0-18.0); LYMPHOCYTES # (AUTO) 1.1 K/uL (2.0-11.5); LYMPHOCYTES % (AUTO) 16.6 % (20.5-51.1); MEAN CORPUSCULAR HEMOGLOBIN 33 pg (27-31); MEAN CORPUSCULAR HGB CONC 34 g/dL (33-37); MEAN CORPUSCULAR VOLUME 95.1 fL (80-94); MONOCYTES # (AUTO) 0.4 K/uL (0.8-1.0); MONOCYTES % (AUTO) 5.4 % (1.7-9.3); NEUTROPHILS # (AUTO) 5.2 K/uL (1.8-7.7); NEUTROPHILS % (AUTO) 77.2 % (42.2-75.2); PLATELET COUNT (AUTO) 309 K/uL (140-450); RED BLOOD CELL COUNT(AUTO) 4.74 MIL/uL (4.20-6.10); RED CELL DISTRIBUTION WIDTH 12.9 % (11.6-13.7); WHITE BLOOD COUNT (AUTO) 6.7 K/uL (4.8-10.8)
--- NOTE | 2022-01-12 11:44 | NUR ---
51/M PRESENTS TO ED WITH C/O CHEST TIGHTNESS RADIATING TO HIS NECK X2 DAYS WORSENING LAST NIGHT. PATIENT STATES HX OF ANXIETY AND GASTRITIS, STATING HE BELIEVES IT MAY BE RELATED. PATIENT REPORTS TAKING KLONOPINE THIS MORNING PRIOR TO ARRIVAL TO ED WITH NO RELIEF. PATIENT STATES HE WOKE UP AT 3AM FEELING ANXIOUS. PATIENT DENIES N/V/D, SOB, LEG PAIN OR SWELLING.
--- NOTE | 2022-01-12 11:51 | NUR ---
ATTEMPTED TO PUT PATIENT ON BEDSIDE NET SOFTWARE ENGINEER, STATING "THAT MAKES ME ANXIOUS I DONT WANT TO BE ON THE MONITOR."
[2022-01-12 12:10] LABS: ALBUMIN 4.1 g/dL (3.4-5.0); ANION GAP 12.5 (8-16); CARBON DIOXIDE 25.4 mmol/L (21-32); CREATININE 0.9 mg/dL (0.6-1.3); POTASSIUM 3.9 mmol/L (3.5-5.1); TOTAL BILIRUBIN 0.5 mg/dL (0.0-1.0)
[2022-01-12 12:12] LABS: PROTHROMBIN TIME 10.6 secs (10.8-13.4)
--- NOTE | 2022-01-12 13:10 | NUR ---
CARY SWAB COLLECTED AND HANDED TO HEALTH AND SAFETY REPRESENTATIVE JENN
[2022-01-12] MEDS ORDERED: NACL 0.9% 1,000 ML IV ONE (13:40)
[2022-01-12] MEDS ORDERED: LORazepam 2 MG/ML VIAL ONE (13:43)
[2022-01-12] MEDS ORDERED: LORazepam 1 MG TAB PO ONE (13:50)
[2022-01-12] MEDS ORDERED: KCL 20 MEQ/WATER INJ PREMIX 200 ML IV PRN (14:20)
[2022-01-12] MEDS ORDERED: MORPHINE SULFATE 4 MG/ML SYR IVP ONE (14:20)
[2022-01-12] MEDS ORDERED: MAGNESIUM OXIDE 400 MG TAB PO PRN (14:20)
[2022-01-12] MEDS ORDERED: HYDROcodone/APAP 5/325 MG 1 TAB TAB PO PRN (14:20)
[2022-01-12] MEDS ORDERED: ONDANSETRON 4 MG/2 ML VIAL IVP PRN (14:20)
[2022-01-12] MEDS ORDERED: POTASSIUM CHLORIDE 10 MEQ TABER PO PRN (14:20)
[2022-01-12] MEDS ORDERED: MAG SULF 2000 MG/WATER PREMIX 50 ML IV PRN (14:20)
[2022-01-12] MEDS ORDERED: MORPHINE SULFATE 4 MG/ML SYR IVP PRN (14:20)
[2022-01-12] MEDS ORDERED: ACETAMINOPHEN 325 MG TAB PO PRN (14:20)
--- NOTE | 2022-01-12 15:30 | NUR ---
PATIENT RESTING IN BED WITH EYES CLOSED, ON BEDSIDE ANNEALING FURNACE OPERATOR. LIGHTS DIMMED AND WARM BLANKET PROVIDED FOR COMFORT, WILL CONTINUE TO MONITOR.
--- NOTE | 2022-01-12 18:05 | NUR ---
RECEIVED PT FROM ER NURSE JOSE FRANCISCO FOR CONTINUITY OF CARE. PT WHEELED OUT BY HS FROM ER VIA [facility]. PT ABLE TO AMBULATE FROM GURNEY TO BED WITH CANE. RESPIRATIONS EVEN AND UNLABORED AT ROOM AIR. NO DISTRESS NOTED. PT ON TELE MONITOR, ADM RHYTHM [id number]. PT A&O4, ABLE TO COMMUNICATE NEEDS. PT ORIENTED TO ROOM, UNIT AND ROUTINE. IV LINE ON RAC 20G, SALINE LOCK. SKIN IS INTACT, WARM AND DRY TO TOUCH. MRSA DONE AND SUBMITTED TO LAB. CALL LIGHT WITHIN REACH. SAFETY MEASURES IN PLACE. WILL CONTINUE TO MONITOR.
--- NOTE | 2022-01-12 18:05 | NUR ---
Patient will be admitted to care of DR. CABAN. Admited to TELE. Will go to room 105A. Belongings list completed. Report to MARIAN.
--- NOTE | 2022-01-12 19:30 | NUR ---
Received report from am shift nurse for continuity of care.Chief complaint of CHEST PAIN , 51 y/o ,Male, Cooperative,oriented, on room air,breathing equal and unlabored.Denies chest pain as of this moment.oriented to call light, bed, phone,television, bathroom, smoking policy, visiting hours, procedures, ID bracelet on. All precautions in place. Call light within reach. Will continue monitor.
--- NOTE | 2022-01-12 19:30 | NUR ---
ENDORSED PT TO CLAY WASHER NURSE FOR CONTINUITY OF CARE. NEEDS MET DURING THE SHIFT. PT IS STABLE.
--- NOTE | 2022-01-12 21:00 | NUR ---
PT REFUSED HEPARIN SQ INJECTION. EDUCATED ABOUT THE IMPORTANCE OF MEDICATION. PT VERBALIZED UNDERSTANDING. ALL PRECAUTIONS IN PLACE. WILL CONTINUE TO MONITOR.
[2022-01-12] MEDS ORDERED: clonazePAM 0.5 MG TAB PO PRN (21:10)
[2022-01-13] VITALS: BP 129/96
--- NOTE | 2022-01-13 | NUR ---
PT'S VITAL SIGNS STABLE. GAUGE AND INSTRUMENT INSPECTOR AT BEDSIDE FOR TROPONIN DRAW. NO DISTRESS NOTED. ALL PRECAUTIONS IN PLACE.CALL LIGHT WITHIN REACH. WILL CONTINUE TO MONITOR.
[2022-01-13 04:00] VITALS: BP 110/80
[2022-01-13 06:00] LABS: BASOPHILS % (AUTO) 0.3 % (0.0-2.0); EOSINOPHILS # (AUTO) 0.2 K/uL (0-0.4); EOSINOPHILS % (AUTO) 3.1 % (0.0-4.0); HEMATOCRIT 43.6 % (36-52); HEMOGLOBIN 15.1 g/dL (12.0-18.0); LYMPHOCYTES # (AUTO) 1.3 K/uL (2.0-11.5); LYMPHOCYTES % (AUTO) 25.4 % (20.5-51.1); MEAN CORPUSCULAR HEMOGLOBIN 33 pg (27-31); MEAN CORPUSCULAR HGB CONC 35 g/dL (33-37); MEAN CORPUSCULAR VOLUME 94.9 fL (80-94); MONOCYTES # (AUTO) 0.5 K/uL (0.8-1.0); MONOCYTES % (AUTO) 10.3 % (1.7-9.3); NEUTROPHILS # (AUTO) 3.2 K/uL (1.8-7.7); NEUTROPHILS % (AUTO) 60.9 % (42.2-75.2); PLATELET COUNT (AUTO) 277 K/uL (140-450); RED BLOOD CELL COUNT(AUTO) 4.59 MIL/uL (4.20-6.10); RED CELL DISTRIBUTION WIDTH 12.9 % (11.6-13.7); WHITE BLOOD COUNT (AUTO) 5.2 K/uL (4.8-10.8)
--- NOTE | 2022-01-13 06:25 | NUR ---
PATIENT HAS BEEN SCREENED AND CATEGORIZED LOW NUTRITION RISK. PATIENT WILL BE SEEN WITHIN 7 DAYS OF ADMISSION. 01/19/[address]
[2022-01-13 06:51] LABS: ALBUMIN 3.7 g/dL (3.4-5.0); ANION GAP 10.1 (8-16); CREATININE 0.9 mg/dL (0.6-1.3); POTASSIUM 4.1 mmol/L (3.5-5.1); TOTAL BILIRUBIN 0.7 mg/dL (0.0-1.0)
--- NOTE | 2022-01-13 07:10 | NUR ---
PT IS STABLE. NO ACUTE EVENTS THROUGHOUT THE NIGHT. ALL NEEDS MET. NO S/SX OF DISTRESS. ALL PRECAUTIONS IN PLACE. CALL LIGHT WITHIN REACH. WILL ENDORSE TO AM SHIFT NURSE.
--- NOTE | 2022-01-13 07:11 | NUR ---
PT ASLEEP. NO RESPIRATORY DISTRESS NOTED.BREATHING EQUAL AND UNLABORED. ALL PRECAUTIONS IN PLACE. WILL CONTINUE TO MONITOR.
--- NOTE | 2022-01-13 07:30 | NUR ---
RECEIVED REPORT FROM EMY GOMEZ FOR CONTINUITY OF CARE. PT IS STABLE. PLAN OF CARE DISCUSSED.
[2022-01-13 08:00] VITALS: BP 125/75
--- NOTE | 2022-01-13 08:41 | NUR ---
ADMINISTERED SCHEDULED MORNING MED. PT REFUSED TAKING HEPARIN, STATED "I NEVER HAD THAT IN MY WHOLE LIFE. FAR I KNOW MY LABS ARE OK. I DON'T NEED IT." EXPLAINED THE IMPORTANCE AND RISKS OF NOT TAKING HEPARIN. PT VERBALIZED UNDERSTANDING. WILL CONTINUE TO MONITOR.
[2022-01-13] MEDS ORDERED: DOCUSATE SODIUM 100 MG GELCAP PO SCH (09:00)
--- NOTE | 2022-01-13 10:57 | NUR ---
PT SITTING AT BEDSIDE. BREATHING EVEN AND UNLABORED. NO DISTRESS NOTED. DENIES PAIN. PT ANTICIPATING TO TALK TO THE DR. CALL LIGHT WITHIN REACH. WILL CONTINUE TO MONITOR.
[2022-01-13 12:00] VITALS: BP 122/74
--- NOTE | 2022-01-13 12:05 | NUR ---
PT SITTING AT BEDSIDE, EATING LUNCH. NO DISTRESS NOTED. BREATHING EVEN AND UNLABORED. WILL CONTINUE TO MONITOR.
--- NOTE | 2022-01-13 14:00 | NUR ---
DR CABAN AT BEDSIDE.
[2022-01-13 14:26] VITALS: BP 122/74
--- NOTE | 2022-01-13 15:05 | NUR ---
PT DISCHARGED HOME. NURSE WALKED PT OUT TO [facility]. FAMILY MEMBER WAITING OUTSIDE. DISCHARGE PAPER DISCUSSED WITH THE PT. PT VERBALIZED UNDERSTANDING. REMOVED IV CATHETER. TELE MONITOR DISCONNECTED FROM THE PT. ALL BELONGINGS TAKEN UPON DISCHARGE. HOME MED CLONAZEPAM RETURNED TO THE PT UPON DC. PT IS STABLE.
== END 2022-01-13 15:30 | disposition home or self-care (01) ==
LOC: MED 10:33 → MTU 14:20
PROVIDERS: ADMIT Hospitalist; ATTEND Hospitalist
DX: R07.89 Other chest pain (principal); Z20.822 Contact with and (suspected) exposure to COVID-19; K29.70 Gastritis, unspecified, without bleeding; F43.10 Post-traumatic stress disorder, unspecified; K21.9 Gastro-esophageal reflux disease without esophagitis; Z79.899 Other long term (current) drug therapy
CPT/HCPCS: 36415; 71045; 80053; 83735; 83880; 84484; 85025; 85610; 85730; 87081; 87426; 93005; 96361; 96374; 96375; 99291; G0378; J1885; J2060; Q0092; J1644

== ENCOUNTER 2022-03-26 13:12 | Emergency (ER) | payer MEDICARE, OTHER ==
[~2022-03-26] VITALS: Ht 182.9 cm; Wt 74.8 kg
[2022-03-26 13:28] VITALS: BP 141/90
--- NOTE | 2022-03-26 14:08 | NUR ---
PT AMBULATED WITH STEADY GAIT TO BED 2
--- NOTE | 2022-03-26 14:10 | NUR ---
51 Y/O MALE WITH C/O RUQ, RLQ PAIN X 4 DAYS ALONG WITH ABDOMINAL MUSCLE SPASMS S/P FALL X1 WEEK AGO. ABDOMEN IS SOFT, FLAT, AND TENDER TO PALPATION. INTERMITTENT PAIN REPORTED AT [place]ULL 8/10. DENIES NVD. TOOK TYLENOL AT 2AM WITH MILD RELIEF. DENIES CP, SOB, FEVER, DYSURIA. ALL: LIDOCAINE, SHRIMP PMH: GASTRITIS, ANXIETY.
--- NOTE | 2022-03-26 14:15 | NUR ---
Dr Cormier at bedside for evaluation
[2022-03-26] MEDS ORDERED: NACL 0.9% 1,000 ML IV ONE (14:20)
[2022-03-26] MEDS ORDERED: MORPHINE SULFATE 4 MG/ML SYR IVP ONE (14:20)
[2022-03-26] MEDS ORDERED: ONDANSETRON 4 MG/2 ML VIAL IVP ONE (14:20)
--- NOTE | 2022-03-26 14:29 | NUR ---
Taken to CT via [facility]
--- NOTE | 2022-03-26 14:36 | NUR ---
pt returned from ct via [facility]
--- NOTE | 2022-03-26 14:39 | NUR ---
pt ambulated to restroom with steady gait
[2022-03-26] MEDS ORDERED: KETOROLAC 30 MG/ML VIAL IVP ONE (14:40)
--- NOTE | 2022-03-26 15:03 | NUR ---
US AT BEDSIDE
[2022-03-26 15:13] LABS: BASOPHILS % (AUTO) 0.2 % (0.0-2.0); EOSINOPHILS % (AUTO) 0.4 % (0.0-4.0); HEMATOCRIT 48.3 % (36-52); HEMOGLOBIN 16.2 g/dL (12.0-18.0); MEAN CORPUSCULAR HEMOGLOBIN 32 pg (27-31); MEAN CORPUSCULAR HGB CONC 34 g/dL (33-37); MONOCYTES # (AUTO) 0.4 K/uL (0.8-1.0); MONOCYTES % (AUTO) 4.4 % (1.7-9.3); NEUTROPHILS # (AUTO) 8.1 K/uL (1.8-7.7); PLATELET COUNT (AUTO) 275 K/uL (140-450); RED BLOOD CELL COUNT(AUTO) 5.03 MIL/uL (4.20-6.10); RED CELL DISTRIBUTION WIDTH 12.9 % (11.6-13.7); WHITE BLOOD COUNT (AUTO) 9.6 K/uL (4.8-10.8)
[2022-03-26 15:43] LABS: APPEARANCE,URINE CLEAR (CLEAR); BILIRUBIN,URINE NEGATIVE (NEGATIVE); BLOOD, URINE TRACE-I (NEGATIVE); COLOR,URINE YELLOW (YELLOW); LEUKOCYTE ESTERASE ,URINE NEGATIVE (NEGATIVE); NITRITE, URINE NEGATIVE (NEGATIVE); PH,URINE 6.5 (5.0-9.0); UGLUCOSE NEGATIVE (NEGATIVE)
[2022-03-26 15:50] LABS: ANION GAP 12.5 (8-16); CARBON DIOXIDE 27.4 mmol/L (21-32); POTASSIUM 3.9 mmol/L (3.5-5.1)
[2022-03-26 16:08] LABS: RBC,URINE 0-5 /HPF (0-5)
[2022-03-26 16:09] LABS: WBC,URINE NONE SEEN /HPF (0-5)
[2022-03-26 16:10] LABS: ALBUMIN 4.2 g/dL (3.4-5.0); TOTAL BILIRUBIN 0.5 mg/dL (0.0-1.0)
[2022-03-26] MEDS ORDERED: BEN10 PO (16:15)
[2022-03-26] MEDS ORDERED: MAGN400S60 PO (16:15)
[2022-03-26 16:40] VITALS: BP 136/87
--- NOTE | 2022-03-26 16:40 | NUR ---
Patient discharged with v/s stable. Written and verbal after care instructions given and explained. Patient alert, oriented and verbalized understanding of instructions. Ambulatory with steady gait. All questions addressed prior to discharge. ID band removed. Patient advised to follow up with PMD. Rx of Bentyl and Milk of Magnesia given. Patient educated on indication of medication including possible reaction and side effects. Opportunity to ask questions provided and answered.
== END 2022-03-26 16:40 | disposition home or self-care (01) ==
LOC: MED 13:12
DX: R10.11 Right upper quadrant pain (principal); K21.9 Gastro-esophageal reflux disease without esophagitis; Z91.013 Allergy to seafood; Z88.8 Allergy status to other drugs, medicaments and biological substances; Z79.899 Other long term (current) drug therapy
CPT/HCPCS: 36415; 74176; 76705; 80053; 81001; 83690; 85025; 96361; 96374; 96375; 99285; J1885; J2405; J7030; Q0092

== ENCOUNTER 2022-04-03 22:57 | Emergency (ER) | payer MEDICARE, OTHER ==
[~2022-04-03] VITALS: Ht 175.3 cm; Wt 113.4 kg
[~2022-04-03 22:57] MED LIST changes: +MAGN400S60 PO
[2022-04-03 23:14] VITALS: BP 142/80
[2022-04-03] MEDS ORDERED: QUER1POW (23:16)
[2022-04-03] MEDS ORDERED: ZINC50TA76 PO (23:16)
[2022-04-03] MEDS ORDERED: DEC4 PO (23:16)
[2022-04-03] MEDS ORDERED: NAPR-54 PO (23:16)
--- NOTE | 2022-04-03 23:43 | NUR ---
Patient discharged with v/s stable. Written and verbal after care instructions given and explained. Patient alert, oriented and verbalized understanding of instructions. Ambulatory with steady gait. All questions addressed prior to discharge. ID band removed. Patient advised to follow up with PMD. Rx of DECADRON, NAPROSYN, ZINC, QUERCENTIN DIHYDRATE given. Patient educated on indication of medication including possible reaction and side effects. Opportunity to ask questions provided and answered.
== END 2022-04-03 23:43 | disposition home or self-care (01) ==
LOC: MED 22:57
DX: U07.1 COVID-19 (principal); J45.909 Unspecified asthma, uncomplicated; F41.9 Anxiety disorder, unspecified; K21.9 Gastro-esophageal reflux disease without esophagitis; Z88.4 Allergy status to anesthetic agent; Z91.013 Allergy to seafood
CPT/HCPCS: 99283

== ENCOUNTER 2022-05-18 10:07 | Emergency (ER) | payer MEDICARE, OTHER ==
[~2022-05-18] VITALS: Ht 182.9 cm; Wt 73.9 kg
[~2022-05-18 10:07] MED LIST changes: +DEC4 PO; +QUER1POW; +ZINC50TA76 PO
[2022-05-18 10:18] VITALS: BP 141/93
--- NOTE | 2022-05-18 11:16 | NUR ---
pt ambulated to bed 07 assisted by a cane.
--- NOTE | 2022-05-18 11:37 | NUR ---
51YO MALE PT C/O SHARP/WARM 03/08 ABDOMINAL AND BACK PAIN XTODAY. PT STATES SUDDEN ONSET AT 2AM THIS MORNING ALONG WITH DIZZINESS . REPORTS "SHARP/WARM" DOWN SPINE AND THROUGHOUT ABDOMEN , PAIN AT MOST ON MOVEMENT. DENIES N/V, CHEST PAIN, SOB, FEVER OR CHILLS. NOTES PREVIOUS BACK INJURY AND STOPPING RX USE OF KLONIPIN TAKEN FOR ANXIETY . DENIES RELIEF AFTER TAKING MYLANTA . 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 PT AAOX4, AMBULATORY USING CANE. NO VISIBLE DISTRESS, RESPIRARTIONS EVEN AND UNLABPORED HX: ASTHMA, ANXIETY, PTSD, GERD ALLEGIES: ANESTHESIA, PENICILLIN
--- NOTE | 2022-05-18 11:41 | NUR ---
MD CHANG AT BEDSIDE FOR EVALUATION
[2022-05-18] MEDS: KETOROLAC 30 MG/ML VIAL IM ONE (11:55)
--- NOTE | 2022-05-18 11:56 | NUR ---
PT TAKEN TO XRAY VIA WHEELCHAIR
--- NOTE | 2022-05-18 12:03 | NUR ---
PT BROUGHT BACK FROM CT VIA WHEELCHAIR
[2022-05-18 12:10] LABS: APPEARANCE,URINE CLEAR (CLEAR); BILIRUBIN,URINE NEGATIVE (NEGATIVE); BLOOD, URINE TRACE-I (NEGATIVE); COLOR,URINE YELLOW (YELLOW); LEUKOCYTE ESTERASE ,URINE NEGATIVE (NEGATIVE); NITRITE, URINE NEGATIVE (NEGATIVE); UGLUCOSE NEGATIVE (NEGATIVE)
[2022-05-18 13:05] LABS: RBC,URINE 0-5 /HPF (0-5); WBC,URINE 0-5 /HPF (0-5)
[2022-05-18] MEDS ORDERED: CYCL-711 PO ×2 (14:16→14:29)
[2022-05-18 14:29] VITALS: BP 123/86
--- NOTE | 2022-05-18 14:29 | NUR ---
Patient discharged with v/s stable. Written and verbal after care instructions FOR ACUTE BACK PAIN given and explained. Patient alert, oriented and verbalized understanding of instructions. Ambulatory USING CANE. All questions addressed prior to discharge. ID band removed. Patient advised to follow up with PMD. Rx of FLEXERIL given. Opportunity to ask questions provided and answered.
--- NOTE | 2022-05-18 14:33 | NUR ---
Chart checked and completed. The patient's care was reviewed and supervised by Adrienne East RN.
== END 2022-05-18 14:29 | disposition home or self-care (01) ==
LOC: MED 10:07
DX: M54.50 Low back pain, unspecified (principal); R10.9 Unspecified abdominal pain; J45.909 Unspecified asthma, uncomplicated; K21.9 Gastro-esophageal reflux disease without esophagitis; Z79.899 Other long term (current) drug therapy; Z91.013 Allergy to seafood; Z88.8 Allergy status to other drugs, medicaments and biological substances
CPT/HCPCS: 72080; 81001; 96372; 99284; J1885; 81002

== ENCOUNTER 2022-11-05 10:31 | Emergency (ER) | payer MEDICARE, OTHER ==
[~2022-11-05] VITALS: Ht 182.9 cm; Wt 75.0 kg
[~2022-11-05 10:31] MED LIST changes: +CYCL-711 PO; +TRAM-748 PO; -TRAM50TA1 PO
[2022-11-05 10:35] VITALS: BP 138/85
--- NOTE | 2022-11-05 11:00 | NUR ---
C/O ZECHARIAH CHEST PAIN, GENERALIZED ABD PAIN , BACK APIN X YESTERDAY.
[2022-11-05 11:16] LABS: BASOPHILS % (AUTO) 0.3 % (0.0-2.0); EOSINOPHILS # (AUTO) 0.1 K/uL (0-0.4); EOSINOPHILS % (AUTO) 0.9 % (0.0-4.0); HEMOGLOBIN 16.1 g/dL (12.0-18.0); LYMPHOCYTES # (AUTO) 1.2 K/uL (2.0-11.5); LYMPHOCYTES % (AUTO) 20.2 % (20.5-51.1); MEAN CORPUSCULAR HEMOGLOBIN 33 pg (27-31); MEAN CORPUSCULAR HGB CONC 34 g/dL (33-37); MEAN CORPUSCULAR VOLUME 95.6 fL (80-94); MONOCYTES # (AUTO) 0.3 K/uL (0.8-1.0); MONOCYTES % (AUTO) 5.5 % (1.7-9.3); NEUTROPHILS # (AUTO) 4.5 K/uL (1.8-7.7); NEUTROPHILS % (AUTO) 73.1 % (42.2-75.2); PLATELET COUNT (AUTO) 307 K/uL (140-450); RED BLOOD CELL COUNT(AUTO) 4.91 MIL/uL (4.20-6.10); RED CELL DISTRIBUTION WIDTH 13.2 % (11.6-13.7); WHITE BLOOD COUNT (AUTO) 6.2 K/uL (4.8-10.8)
[2022-11-05 11:46] LABS: ALBUMIN 4.5 g/dL (3.4-5.0); CARBON DIOXIDE 29.1 mmol/L (21-32); CREATININE 1.1 mg/dL (0.6-1.3); POTASSIUM 4.1 mmol/L (3.5-5.1); TOTAL BILIRUBIN 0.5 mg/dL (0.0-1.0)
[2022-11-05] MEDS ORDERED: ACET-10509 PO (14:05)
[2022-11-05] MEDS ORDERED: LORazepam 1 MG TAB PO ONE (14:45)
[2022-11-05 14:49] VITALS: BP 145/85
[2022-11-06] MEDS ORDERED: IBUP-2213 PO (16:37)
== END 2022-11-05 14:48 | disposition home or self-care (01) ==
LOC: MED 10:31
DX: S46.811A Strain of other muscles, fascia and tendons at shoulder and upper arm level, right arm, initial encounter (principal); R07.89 Other chest pain; R10.9 Unspecified abdominal pain; F41.9 Anxiety disorder, unspecified; J45.909 Unspecified asthma, uncomplicated; K21.9 Gastro-esophageal reflux disease without esophagitis; Z79.899 Other long term (current) drug therapy; Z91.013 Allergy to seafood; Z88.8 Allergy status to other drugs, medicaments and biological substances; X58.XXXA Exposure to other specified factors, initial encounter; Y93.89 Activity, other specified; Y92.89 Other specified places as the place of occurrence of the external cause; Y99.8 Other external cause status
CPT/HCPCS: 36415; 71045; 80053; 83690; 83880; 84443; 84484; 85025; 93005; 99285

== ENCOUNTER 2022-11-06 13:46 | Emergency (ER) | payer MEDICARE, MEDICAID ==
[~2022-11-06] VITALS: Ht 175.3 cm; Wt 74.8 kg
[~2022-11-06 13:46] MED LIST changes: +ACET-10509 PO
[2022-11-06 14:23] VITALS: BP 135/88
[2022-11-06] MEDS ORDERED: KETOROLAC 15 MG/ML VIAL IM ONE (14:40)
[2022-11-06] MEDS ORDERED: KETOROLAC 15 MG/ML VIAL ONE (15:49)
[2022-11-06] MEDS ORDERED: IBUP-2213 PO (16:37)
--- NOTE | 2022-11-06 17:10 | NUR ---
Patient discharged with v/s stable. Written and verbal after care instructions given and explained. Patient alert, oriented and verbalized understanding of instructions. Ambulatory with to car. All questions addressed prior to discharge. ID band removed. Patient advised to follow up with PMD. Rx of MOTRIN given. Patient educated on indication of medication including possible reaction and side effects. Opportunity to ask questions provided and answered.
== END 2022-11-06 17:10 | disposition home or self-care (01) ==
LOC: MED 13:46
DX: M94.0 Chondrocostal junction syndrome [Tietze] (principal); F41.9 Anxiety disorder, unspecified; R07.89 Other chest pain; R00.0 Tachycardia, unspecified; J45.909 Unspecified asthma, uncomplicated; K21.9 Gastro-esophageal reflux disease without esophagitis; Z79.899 Other long term (current) drug therapy; Z79.1 Long term (current) use of non-steroidal anti-inflammatories (NSAID); Z79.891 Long term (current) use of opiate analgesic; Z88.4 Allergy status to anesthetic agent; Z91.013 Allergy to seafood; Z91.048 Other nonmedicinal substance allergy status
CPT/HCPCS: 93005; 96372; 99283; J1885

== ENCOUNTER 2022-11-08 13:20 | Emergency (ER) | payer MEDICARE, MEDICAID ==
[~2022-11-08] VITALS: Ht 182.9 cm; Wt 74.8 kg
[~2022-11-08 13:20] MED LIST changes: +IBUP-2213 PO
[2022-11-08 13:24] VITALS: BP 134/91
--- NOTE | 2022-11-08 13:28 | NUR ---
PT AMBULATED TO ER BED 7
--- NOTE | 2022-11-08 13:59 | NUR ---
ATTEMPTED TO DO IV FOR CT ANGIO, PT REQUESTING CT WITHOUT CONTRAST D/T ALLERGY TO SHRIMP. DR EUCEDA AWARE.
[2022-11-08] MEDS ORDERED: ALUMINUM HYD/MAG/SIMETHICONE 30 ML UDC PO ONE (14:15)
[2022-11-08] MEDS ORDERED: ALUMINUM HYD/MAG/SIMETHICONE 30 ML UDC ONE (14:18)
[2022-11-08 14:21] LABS: BASOPHILS % (AUTO) 0.4 % (0.0-2.0); EOSINOPHILS # (AUTO) 0.1 K/uL (0-0.4); EOSINOPHILS % (AUTO) 2.2 % (0.0-4.0); HEMATOCRIT 42.9 % (36-52); HEMOGLOBIN 15.3 g/dL (12.0-18.0); LYMPHOCYTES # (AUTO) 1.3 K/uL (2.0-11.5); LYMPHOCYTES % (AUTO) 22.6 % (20.5-51.1); MEAN CORPUSCULAR HEMOGLOBIN 33 pg (27-31); MEAN CORPUSCULAR HGB CONC 36 g/dL (33-37); MEAN CORPUSCULAR VOLUME 93.1 fL (80-94); MONOCYTES # (AUTO) 0.4 K/uL (0.8-1.0); MONOCYTES % (AUTO) 6.9 % (1.7-9.3); NEUTROPHILS # (AUTO) 3.8 K/uL (1.8-7.7); NEUTROPHILS % (AUTO) 67.9 % (42.2-75.2); PLATELET COUNT (AUTO) 274 K/uL (140-450); RED BLOOD CELL COUNT(AUTO) 4.61 MIL/uL (4.20-6.10); RED CELL DISTRIBUTION WIDTH 12.8 % (11.6-13.7); WHITE BLOOD COUNT (AUTO) 5.6 K/uL (4.8-10.8)
[2022-11-08 14:22] LABS: ALBUMIN 4.3 g/dL (3.4-5.0); ANION GAP 11.6 (8-16); ASPARTATE AMINOTRANSFERASE 14 U/L (15-37); CARBON DIOXIDE 29.1 mmol/L (21-32); CHLORIDE 104 mmol/L (98-107); GFR ARICAN-AMERICAN 101 mL/min (>90); GLUCOSE 110 mg/dL (74-106); POTASSIUM 3.7 mmol/L (3.5-5.1); SODIUM SERUM 141 mmol/L (136-145); TOTAL BILIRUBIN 0.7 mg/dL (0.0-1.0); UREA NITROGEN, BLOOD 21 mg/dL (7-18)
--- NOTE | 2022-11-08 14:25 | NUR ---
51YO MALE PT C/O TIGHT/PRESSURED CHEST PAIN AND BURNING EPIGASTRIC PAIN X1WEEK. REPORTS SOB AND INCREASED ONSETS WHEN HAVING ANXIETY. DENIES RELIEF AFTER MOTRIN. EXPRESSED RECENT INCREASE IN STRESS/ANXIETY D/T FAMILY ISSUES. PT AAOX4, SPEAKING IN CLEAR SENTENCES. RESPIRATIONS EVEN AND UNLABORED. HX: ANXIETY, PTSD, GASTRITIS, FIBROMYALGIA, PARKINSONS ALLERGIES: LIDOCAINE, ANESTHESIA
--- NOTE | 2022-11-08 14:46 | NUR ---
PT TAKEN TO CT VIA WHEELCHAIR
--- NOTE | 2022-11-08 14:57 | NUR ---
PT BROUGHT BACK VIA WHEELCHAIR
[2022-11-08 16:22] VITALS: BP 145/91
[2022-11-08] MEDS ORDERED: MAG355OR2 PO (16:38)
--- NOTE | 2022-11-08 16:53 | NUR ---
IV removed, catheter intact and site benign. Applied folded 4x4 gauze and tape to stop bleeding.
--- NOTE | 2022-11-08 16:58 | NUR ---
Patient discharged. Written and verbal after care instructions ABOUT GASTRITIS AND ABDOMINAL PAIN given and explained. Patient alert, oriented and verbalized understanding of instructions. Ambulatory with steady gait. All questions addressed prior to discharge. ID band removed. Patient advised to follow up with PMD. Rx of MAALOX MAXIMUM given. Patient educated on indication of medication including possible reaction and side effects. Opportunity to ask questions provided and answered. DR EUCEDA AWARE OF VITALS. OKAY TO D/C.
== END 2022-11-08 16:58 | disposition home or self-care (01) ==
LOC: MED 13:20
DX: R07.9 Chest pain, unspecified (principal); R10.13 Epigastric pain; R10.33 Periumbilical pain; K29.70 Gastritis, unspecified, without bleeding; F41.9 Anxiety disorder, unspecified; J45.909 Unspecified asthma, uncomplicated; Z88.4 Allergy status to anesthetic agent; Z91.013 Allergy to seafood
CPT/HCPCS: 36415; 71275; 74174; 80053; 84484; 85025; 93005; 99285; Q9967

== ENCOUNTER 2023-01-30 15:35 | Emergency (ER) | payer MEDICARE, MEDICAID ==
[~2023-01-30] VITALS: Ht 182.9 cm; Wt 75.7 kg
[~2023-01-30 15:35] MED LIST changes: +MAG355OR2 PO
--- NOTE | 2023-01-30 16:07 | NUR ---
PT AMB TO BED 5
[2023-01-30 16:08] VITALS: BP 145/79
--- NOTE | 2023-01-30 16:20 | NUR ---
52YO M C/O LT RIB PAIN SINCE THIS AM, ALEXANDER, NO TRAUMA. DENIES SOB, CP, N,V,D. SAFETY MAINTAINED.
[2023-01-30 16:26] LABS: BASOPHILS % (AUTO) 0.3 % (0.0-2.0); EOSINOPHILS # (AUTO) 0.1 K/uL (0-0.4); EOSINOPHILS % (AUTO) 1.9 % (0.0-4.0); HEMATOCRIT 46.5 % (36-52); HEMOGLOBIN 16.2 g/dL (12.0-18.0); LYMPHOCYTES # (AUTO) 1.4 K/uL (2.0-11.5); LYMPHOCYTES % (AUTO) 21.1 % (20.5-51.1); MEAN CORPUSCULAR HEMOGLOBIN 33 pg (27-31); MEAN CORPUSCULAR HGB CONC 35 g/dL (33-37); MEAN CORPUSCULAR VOLUME 95.2 fL (80-94); MONOCYTES # (AUTO) 0.5 K/uL (0.8-1.0); MONOCYTES % (AUTO) 8.1 % (1.7-9.3); NEUTROPHILS # (AUTO) 4.5 K/uL (1.8-7.7); NEUTROPHILS % (AUTO) 68.6 % (42.2-75.2); PLATELET COUNT (AUTO) 308 K/uL (140-450); RED BLOOD CELL COUNT(AUTO) 4.88 MIL/uL (4.20-6.10); WHITE BLOOD COUNT (AUTO) 6.6 K/uL (4.8-10.8)
[2023-01-30 16:35] LABS: ANION GAP 11.6 (8-16); CARBON DIOXIDE 28.3 mmol/L (21-32); POTASSIUM 3.9 mmol/L (3.5-5.1)
[2023-01-30 16:43] LABS: APPEARANCE,URINE CLEAR (CLEAR); BILIRUBIN,URINE NEGATIVE (NEGATIVE); BLOOD, URINE 1+ (NEGATIVE); COLOR,URINE YELLOW (YELLOW); LEUKOCYTE ESTERASE ,URINE NEGATIVE (NEGATIVE); NITRITE, URINE NEGATIVE (NEGATIVE); UGLUCOSE NEGATIVE (NEGATIVE)
[2023-01-30] MEDS ORDERED: KETOROLAC 30 MG/ML VIAL IM ONE (16:50)
[2023-01-30 17:49] VITALS: BP 135/79
--- NOTE | 2023-01-30 17:49 | NUR ---
Patient discharged with v/s stable. Written and verbal after care instructions FOR CHEST WALL PAIN given and explained. Patient verbalized understanding. Ambulatory with steady gait. All questions addressed prior to discharge. Advised to follow up with PMD.
== END 2023-01-30 17:49 | disposition home or self-care (01) ==
LOC: MED 15:35
DX: R07.81 Pleurodynia (principal); F41.9 Anxiety disorder, unspecified; Z79.899 Other long term (current) drug therapy; Z91.013 Allergy to seafood; Z88.8 Allergy status to other drugs, medicaments and biological substances
CPT/HCPCS: 36415; 71100; 80048; 81003; 85025; 96372; 99284; J1885

== ENCOUNTER 2023-03-10 16:58 | Emergency (ER) | payer MEDICARE, OTHER ==
[~2023-03-10] VITALS: Ht 182.9 cm; Wt 81.6 kg
[2023-03-10 17:18] VITALS: BP 143/80; PULSE 102; RESP 22; TEMP 99.1; O2SAT 98
--- NOTE | 2023-03-10 17:30 | NUR ---
BACK IN THE LOBBY
--- NOTE | 2023-03-10 19:25 | NUR ---
Patient refused to be placed on gambling monitor, BP cuff and pulse oximetry due to his anxiety. EDITH made aware.
--- NOTE | 2023-03-10 19:28 | NUR ---
PT TAKEN TO BED 3
[2023-03-10 19:35] VITALS: TEMP 98.2
--- NOTE | 2023-03-10 19:42 | NUR ---
Patient being evaluated by physician at bedside.
[2023-03-10] MEDS ORDERED: KETOROLAC 30 MG/ML VIAL IVP ONE (19:45)
[2023-03-10 20:14] LABS: BASOPHILS % (AUTO) 0.2 % (0.0-2.0); EOSINOPHILS % (AUTO) 0.3 % (0.0-4.0); HEMATOCRIT 44.9 % (36-52); HEMOGLOBIN 15.5 g/dL (12.0-18.0); LYMPHOCYTES # (AUTO) 1.3 K/uL (2.0-11.5); LYMPHOCYTES % (AUTO) 16.4 % (20.5-51.1); MEAN CORPUSCULAR HEMOGLOBIN 33 pg (27-31); MEAN CORPUSCULAR HGB CONC 35 g/dL (33-37); MEAN CORPUSCULAR VOLUME 94.9 fL (80-94); MONOCYTES # (AUTO) 0.5 K/uL (0.8-1.0); MONOCYTES % (AUTO) 5.9 % (1.7-9.3); NEUTROPHILS # (AUTO) 5.9 K/uL (1.8-7.7); NEUTROPHILS % (AUTO) 77.2 % (42.2-75.2); PLATELET COUNT (AUTO) 288 K/uL (140-450); RED BLOOD CELL COUNT(AUTO) 4.73 MIL/uL (4.20-6.10); RED CELL DISTRIBUTION WIDTH 12.9 % (11.6-13.7); WHITE BLOOD COUNT (AUTO) 7.6 K/uL (4.8-10.8)
[2023-03-10 20:35] LABS: ALBUMIN 4.2 g/dL (3.4-5.0); ANION GAP 11.8 (8-16); POTASSIUM 3.8 mmol/L (3.5-5.1); TOTAL BILIRUBIN 0.6 mg/dL (0.0-1.0)
--- NOTE | 2023-03-10 20:57 | NUR ---
PATIENT IS A 52/M CAME IN DUE TO RIGHT UPPER QUADRANT PAIN, SHARP, 4/10, RADIATING TO RIGHT UPPER BACK, ASSOCIATED WITH CONSTIPATION SINCE THIS AM. NO NAUSEA/VOMITING/DIARRHEA, FEVER/CHILLS NOTED. PATIENT TOOK TYLENOL & MYLANTA WITH MINIMAL RELIEF. PMHX: PTSD (ON CLONAZEPAM) aLLERGIES: ONIONS, RED PEPPERS, SHRIMP, LIDOCAINE
--- NOTE | 2023-03-10 20:57 | NUR ---
PATIENT BACK FROM CT.
--- NOTE | 2023-03-10 23:01 | NUR ---
Patient awake and comfortable in bed. No complaints of pain or signs of acute distress at this time.Side rail up and call light within reach.
[2023-03-11] MEDS ORDERED: IBUP-2213 PO (00:45)
[2023-03-11 00:58] VITALS: BP 113/69; PULSE 78; RESP 16; O2SAT 98
== END 2023-03-11 00:50 | disposition home or self-care (01) ==
LOC: MED 16:58
DX: R10.31 Right lower quadrant pain (principal); Z98.890 Other specified postprocedural states; Z79.899 Other long term (current) drug therapy; Z79.1 Long term (current) use of non-steroidal anti-inflammatories (NSAID); Z91.013 Allergy to seafood; Z88.4 Allergy status to anesthetic agent; Z91.018 Allergy to other foods; Z91.048 Other nonmedicinal substance allergy status
CPT/HCPCS: 36415; 74176; 80053; 83690; 85025; 96374; 99285; J1885

== ENCOUNTER 2023-11-09 13:44 | Emergency (ER) | payer BC, MEDICAID ==
[~2023-11-09] VITALS: Ht 182.9 cm; Wt 77.1 kg
[2023-11-09 13:57] VITALS: BP 139/93; PULSE 110; RESP 18; TEMP 97.8; O2SAT 98
[2023-11-09 14:39] LABS: BASOPHILS % (AUTO) 0.5 % (0.0-2.0); EOSINOPHILS # (AUTO) 0.1 K/uL (0-0.4); EOSINOPHILS % (AUTO) 1.8 % (0.0-4.0); HEMATOCRIT 46.5 % (36-52); HEMOGLOBIN 16.4 g/dL (12.0-18.0); LYMPHOCYTES # (AUTO) 1.2 K/uL (2.0-11.5); LYMPHOCYTES % (AUTO) 18.6 % (20.5-51.1); MEAN CORPUSCULAR HEMOGLOBIN 33 pg (27-31); MEAN CORPUSCULAR HGB CONC 35 g/dL (33-37); MEAN CORPUSCULAR VOLUME 94.3 fL (80-94); MONOCYTES # (AUTO) 0.5 K/uL (0.8-1.0); NEUTROPHILS # (AUTO) 4.5 K/uL (1.8-7.7); NEUTROPHILS % (AUTO) 71.1 % (42.2-75.2); PLATELET COUNT (AUTO) 316 K/uL (140-450); RED BLOOD CELL COUNT(AUTO) 4.93 MIL/uL (4.20-6.10); RED CELL DISTRIBUTION WIDTH 13.1 % (11.6-13.7); WHITE BLOOD COUNT (AUTO) 6.4 K/uL (4.8-10.8)
[2023-11-09 15:03] LABS: ANION GAP 11.3 (8-16); CALCIUM 8.9 mg/dL (8.5-10.1); CARBON DIOXIDE 28.8 mmol/L (21-32); CREATININE 1.1 mg/dL (0.6-1.3); POTASSIUM 4.1 mmol/L (3.5-5.1); TOTAL BILIRUBIN 0.6 mg/dL (0.0-1.0); TOTAL PROTEIN, SERUM 8.9 g/dL (6.4-8.2)
[2023-11-09 15:04] LABS: APPEARANCE,URINE CLEAR (CLEAR); BILIRUBIN,URINE NEGATIVE (NEGATIVE); BLOOD, URINE 1+ (NEGATIVE); COLOR,URINE YELLOW (YELLOW); LEUKOCYTE ESTERASE ,URINE NEGATIVE (NEGATIVE); NITRITE, URINE NEGATIVE (NEGATIVE); PROTEIN,URINE NEGATIVE (NEGATIVE); UGLUCOSE NEGATIVE (NEGATIVE); UROBILINOGEN,URINE 0.2 EU/dL (0.2 - 1)
[2023-11-09 15:17] LABS: BACTERIA,URINE None Seen /HPF (None Seen); RBC,URINE 0-5 /HPF (0-5); SQUAMOUS EPITHELIAL CELL,UR 0-3 (FEW) /LPF (0-3 (FEW)); WBC,URINE 0-5 /HPF (0-5)
[2023-11-09] MEDS ORDERED: DOCU283N RC (17:32)
[2023-11-09] MEDS ORDERED: MIRABULK PO (17:32)
[2023-11-09] MEDS ORDERED: LACT-85 PO (17:32)
[2023-11-09] MEDS ORDERED: DOCU-299 PO (17:32)
== END 2023-11-09 18:15 | disposition home or self-care (01) ==
LOC: MED 13:44
DX: R10.32 Left lower quadrant pain (principal); R10.31 Right lower quadrant pain; K59.00 Constipation, unspecified; Z91.040 Latex allergy status; Z88.8 Allergy status to other drugs, medicaments and biological substances
CPT/HCPCS: 36415; 76700; 76705; 80053; 81001; 83690; 85025; 99284; Q0092

== ENCOUNTER 2023-11-23 09:06 | Emergency (ER) | payer BC, MEDICAID ==
[~2023-11-23] VITALS: Ht 182.9 cm; Wt 77.1 kg
[~2023-11-23 09:06] MED LIST changes: +DOCU-299 PO; +DOCU283N RC; +LACT-85 PO; +MIRABULK PO
[2023-11-23 09:08] VITALS: BP 131/99; PULSE 112; RESP 19; TEMP 98.7; O2SAT 96
[2023-11-23 09:20] VITALS: O2SAT 96
[2023-11-23] MEDS: NACL 0.9% 1,000 ML IV ONE (09:33)
[2023-11-23 09:45] LABS: APPEARANCE,URINE CLEAR (CLEAR); BILIRUBIN,URINE NEGATIVE (NEGATIVE); BLOOD, URINE 1+ (NEGATIVE); COLOR,URINE YELLOW (YELLOW); LEUKOCYTE ESTERASE ,URINE NEGATIVE (NEGATIVE); NITRITE, URINE NEGATIVE (NEGATIVE); PROTEIN,URINE NEGATIVE (NEGATIVE); UGLUCOSE NEGATIVE (NEGATIVE); UROBILINOGEN,URINE 0.2 EU/dL (0.2 - 1)
[2023-11-23 09:46] LABS: BASOPHILS % (AUTO) 0.4 % (0.0-2.0); EOSINOPHILS # (AUTO) 0.3 K/uL (0-0.4); EOSINOPHILS % (AUTO) 3.7 % (0.0-4.0); HEMATOCRIT 46.6 % (36-52); HEMOGLOBIN 16.2 g/dL (12.0-18.0); LYMPHOCYTES # (AUTO) 1.4 K/uL (2.0-11.5); LYMPHOCYTES % (AUTO) 19.9 % (20.5-51.1); MEAN CORPUSCULAR HEMOGLOBIN 33 pg (27-31); MEAN CORPUSCULAR HGB CONC 35 g/dL (33-37); MEAN CORPUSCULAR VOLUME 95.2 fL (80-94); MONOCYTES # (AUTO) 0.5 K/uL (0.8-1.0); MONOCYTES % (AUTO) 7.3 % (1.7-9.3); NEUTROPHILS # (AUTO) 4.7 K/uL (1.8-7.7); NEUTROPHILS % (AUTO) 68.7 % (42.2-75.2); PLATELET COUNT (AUTO) 287 K/uL (140-450); WHITE BLOOD COUNT (AUTO) 6.9 K/uL (4.8-10.8)
[2023-11-23] MEDS: KETOROLAC 30 MG/ML VIAL IVP ONE (09:47)
[2023-11-23 09:55] LABS: BACTERIA,URINE FEW /HPF (None Seen); SQUAMOUS EPITHELIAL CELL,UR 0-3 (FEW) /LPF (0-3 (FEW)); WBC,URINE 0-5 /HPF (0-5)
[2023-11-23 09:56] LABS: ANION GAP 11.9 (8-16); CARBON DIOXIDE 29.2 mmol/L (21-32); CREATININE 1.1 mg/dL (0.6-1.3); POTASSIUM 4.1 mmol/L (3.5-5.1)
[2023-11-23 10:00] LABS: ALBUMIN 3.9 g/dL (3.4-5.0); BILIRUBIN,DIRECT 0.1 mg/dL (0.0-0.3); TOTAL BILIRUBIN 0.3 mg/dL (0.0-1.0); TOTAL PROTEIN, SERUM 7.2 g/dL (6.4-8.2)
[2023-11-23] MEDS ORDERED: MIRABULK PO (11:51)
[2023-11-23 12:09] VITALS: BP 125/82; PULSE 88; RESP 16; TEMP 98.7; O2SAT 99
== END 2023-11-23 12:08 | disposition home or self-care (01) ==
LOC: MED 09:06
DX: R10.30 Lower abdominal pain, unspecified (principal); K59.00 Constipation, unspecified; Z91.040 Latex allergy status; Z88.6 Allergy status to analgesic agent; Z79.899 Other long term (current) drug therapy
CPT/HCPCS: 36415; 74177; 80048; 80076; 81001; 83690; 85025; 96361; 96374; 99285; J1885; J7030; Q9967

== ENCOUNTER 2023-12-24 17:43 | Emergency (ER) | payer BC, MEDICAID ==
[~2023-12-24] VITALS: Ht 182.9 cm; Wt 75.3 kg
[~2023-12-24 17:43] MED LIST changes: +CLON-1202 PO; -CLON1TAB PO; +NAPR-337 PO; -NAPR-54 PO
[2023-12-24 18:01] VITALS: BP 131/88; PULSE 119; RESP 20; TEMP 98.2; O2SAT 97
[2023-12-24] MEDS ORDERED: LORazepam 1 MG TAB PO ONE (18:40)
[2023-12-24] MEDS: LORazepam 1 MG TAB PO ONE (19:02)
[2023-12-24 19:13] LABS: BASOPHILS % (AUTO) 0.3 % (0.0-2.0); EOSINOPHILS # (AUTO) 0.1 K/uL (0-0.4); EOSINOPHILS % (AUTO) 1.1 % (0.0-4.0); HEMATOCRIT 45.9 % (36-52); LYMPHOCYTES # (AUTO) 1.1 K/uL (2.0-11.5); LYMPHOCYTES % (AUTO) 14.4 % (20.5-51.1); MEAN CORPUSCULAR HEMOGLOBIN 33 pg (27-31); MEAN CORPUSCULAR HGB CONC 35 g/dL (33-37); MEAN CORPUSCULAR VOLUME 95.2 fL (80-94); MONOCYTES # (AUTO) 0.5 K/uL (0.8-1.0); MONOCYTES % (AUTO) 6.9 % (1.7-9.3); NEUTROPHILS % (AUTO) 77.3 % (42.2-75.2); PLATELET COUNT (AUTO) 301 K/uL (140-450); RED BLOOD CELL COUNT(AUTO) 4.83 MIL/uL (4.20-6.10); RED CELL DISTRIBUTION WIDTH 12.9 % (11.6-13.7); WHITE BLOOD COUNT (AUTO) 7.8 K/uL (4.8-10.8)
[2023-12-24] MEDS: ONDANSETRON 4 MG ODT PO ONE (19:21)
[2023-12-24 19:35] LABS: CALCIUM 9.4 mg/dL (8.5-10.1); CARBON DIOXIDE 26.8 mmol/L (21-32); CHLORIDE 100 mmol/L (98-107); GFR ARICAN-AMERICAN 101 mL/min (>90); GFR NON ARICAN-AMERICAN 83 mL/min (>90); GLUCOSE 101 mg/dL (74-106); POTASSIUM 3.8 mmol/L (3.5-5.1); SODIUM SERUM 139 mmol/L (136-145); UREA NITROGEN, BLOOD 18 mg/dL (7-18)
[2023-12-24 19:44] LABS: ALANINE AMINOTRANSFERASE 17 U/L (12-78); ALBUMIN 4.4 g/dL (3.4-5.0); ALKALINE PHOSPHATASE 62 U/L (50-136); ASPARTATE AMINOTRANSFERASE 11 U/L (15-37); TOTAL BILIRUBIN 0.7 mg/dL (0.0-1.0)
[2023-12-24 20:03] VITALS: BP 136/66; PULSE 90; RESP 19; TEMP 98.3; O2SAT 99
== END 2023-12-24 19:57 | disposition home or self-care (01) ==
LOC: MED 17:43
DX: F41.0 Panic disorder [episodic paroxysmal anxiety] (principal); Z88.8 Allergy status to other drugs, medicaments and biological substances; Z79.899 Other long term (current) drug therapy
CPT/HCPCS: 36415; 71045; 80053; 84484; 85025; 93005; 99285; Q0162

== ENCOUNTER 2024-02-26 18:59 | Emergency (ER) | payer BC, MEDICAID ==
[~2024-02-26] VITALS: Ht 182.9 cm; Wt 72.6 kg
[2024-02-26 19:06] VITALS: BP 119/80; PULSE 111; RESP 18; TEMP 99.1; O2SAT 100
[2024-02-26] MEDS ORDERED: CEPH-588 PO (19:18)
[2024-02-26] MEDS ORDERED: ACET-10509 PO (19:18)
[2024-02-26] MEDS ORDERED: BACITRACIN OINT 500 UNITS/GM PKT TP ONE (19:38)
[2024-02-26] MEDS: BACITRACIN OINT 500 UNITS/GM PKT TP ONE (19:39)
[2024-02-26 19:44] VITALS: BP 119/80; PULSE 111; RESP 18; TEMP 99.1; O2SAT 100
== END 2024-02-26 19:44 | disposition home or self-care (01) ==
LOC: MED 18:59
DX: S91.331A Puncture wound without foreign body, right foot, initial encounter (principal); Z79.899 Other long term (current) drug therapy; Z88.4 Allergy status to anesthetic agent; Z91.013 Allergy to seafood; W45.0XXA Nail entering through skin, initial encounter; Y92.89 Other specified places as the place of occurrence of the external cause; Y93.89 Activity, other specified; Y99.8 Other external cause status
CPT/HCPCS: 90471; 90715; 99283

== ENCOUNTER 2024-03-27 16:13 | Emergency (ER) | payer BC, MEDICAID ==
[~2024-03-27] VITALS: Ht 182.9 cm; Wt 71.7 kg
[~2024-03-27 16:13] MED LIST changes: +CEPH-588 PO
[2024-03-27 17:06] VITALS: BP 147/89; PULSE 121; RESP 20; TEMP 99; O2SAT 99
[2024-03-27 20:05] VITALS: BP 147/89; PULSE 121; RESP 20; TEMP 99; O2SAT 99
== END 2024-03-27 20:05 | disposition home or self-care (01) ==
LOC: MED 16:13
DX: R00.2 Palpitations (principal); F41.0 Panic disorder [episodic paroxysmal anxiety]; R10.84 Generalized abdominal pain; Z79.899 Other long term (current) drug therapy; Z91.013 Allergy to seafood; Z88.4 Allergy status to anesthetic agent
CPT/HCPCS: 93005; 99283